=== PATIENT | male | born 1970 | race Caucasian/White ===

== ENCOUNTER 2016-09-08 15:52 | Emergency (ER) | payer OTHER ==
[~2016-09-08 15:52] MED LIST: ALBUTEROL HFA60 DOSE IN; ALBUTEROL2.5 MG/3 M IN; HYCET1 ML PO
--- NOTE | 2016-09-08 18:12 | DIAGNOSTIC IMAGING REPORT ---
PROCEDURE: US SCROTUM/TESTICLE INDICATION: Scrotal swelling. History of chronic epididymitis. TECHNIQUE: Cornelius scale and color Doppler sonographic images through the scrotum were obtained. COMPARISON: Comparison is made to scrotal ultrasound 10/06/2015. FINDINGS: RIGHT TESTICLE: Right testicle is of normal size (3.1 x 2.3 cm) minimal increased vascularity. There is mild enlargement and heterogeneous appearance of the right epididymis (1.2 x 0.9 cm) with increased vascularity. LEFT TESTICLE: Left testicle is of normal size (3.8 x 2.3 cm) with minimal increased vascularity. There is mild enlargement and heterogeneous appearance of the left epididymis (1.5 x 1.0 cm) with mild increased vascularity. Scans were obtained of the right inguinal region (previously drained seroma) there is no evidence of significant fluid collection. IMPRESSION: 1. Normal testicles with mild increased vascularity. 2. Mild enlargement and heterogeneous appearance of bilateral epididymi with increased vascularity signal consistent with chronic epididymitis. 3. Findings discussed with Dr. James Jin.
--- NOTE | 2016-09-08 18:57 | ED CLINICAL REPORT ---
Clinical Report - Physicians/Mid Levels [facility] [address] [place] [address] 09/08/2016 15:53 Patient: JORDAN RICHARDSON Time Seen: 16:24. Arrived- By private vehicle. Historian- patient. HISTORY OF PRESENT ILLNESS Chief Complaint: RIGHT TESTICULAR PAIN. This started about 1 week ago and is still present. The problem is described as severe. It was gradual in onset and has been constant and waxing/waning. No penile discharge, discomfort with urination, urinary frequency, genital lesion or urgency of urination. He has had severe testicular pain, involving the right testicle with swelling. (the patient has a history of what initially was thought to be an inguinal hernia but later turned out to be a cyst on the right. He underwent surgery for this about a year and a half ago. Over the past week he has noticed increased swelling there and progressively more painful.). Similar symptoms previously: REVIEW OF SYSTEMS No chills, fever, sweats, calf pain or chest pain. No cough, difficulty breathing, pedal edema, palpitations or abdominal pain. No constipation, diarrhea, nausea or urinary problems. All systems otherwise negative, except as recorded above. PAST HISTORY Problems: Abdominal Pain. Hernia. Diverticulitis. Herpes Genitalis. STD - Sexually Transmitted Disease. Conjunctivitis. Hypertension. Epididymitis. Asthma. Anxiety Reaction. Additional Surgeries: Abd Surgery. Tonsillectomy. Medications: Albuterol Sulfate HFA Inhalation. Allergies: PCN. SOCIAL HISTORY Smoker- current status unknown (he chews tobacco). Occasional alcohol use. History of drug use: marijuana. ADDITIONAL NOTES The nursing notes have been reviewed. PHYSICAL EXAM Vital Signs: 09/08/2016 16:17 BP: 144/92. HR: 113. RR: 16. O2 saturation: 100%. Temp: 98.3 F. Pain level now: 8/10. Have been reviewed. Appearance: Alert. No acute distress. ENT: Pharynx normal. Neck: Neck supple. CVS: Heart sounds normal. Respiratory: No respiratory distress. Breath sounds normal. Abdomen: Soft and nontender. Bowel sounds normal. No organomegaly. No mass. Back: Normal external inspection. No CVA tenderness. : Medium sized right-sided scrotal mass. Skin: Skin warm and dry. Normal skin color. No rash. Normal skin turgor. Extremities: Extremities exhibit normal ROM. No calf tenderness. No lower extremity edema. LABS, X-RAYS, AND EKG Scrotal Sonogram: IMPRESSION: 1. Normal testicles with mild increased vascularity. 2. Mild enlargement and heterogeneous appearance of bilateral epididymi with increased vascularity signal consistent with chronic epididymitis. The study was interpreted contemporaneously by me and discussed with the radiologist. Laboratory Tests: UA-Culture if indicated: (MICHAELA: 09/08/2016 18:05) ( [facility]33) Final results Test Result Flag Units (Reference) URINE COLOR YELLOW URINE APPEARANCE CLEAR URINE GLUCOSE NEGATIVE (NEGATIVE) URINE BILIRUBIN NEGATIVE (NEGATIVE) URINE KETONE NEGATIVE (NEGATIVE) URINE SPECIFIC GRAVITY >= 1.030 (1.010-1.030) URINE PH 6.5 (5.0-8.0) URINE PROTEIN NEGATIVE (NEGATIVE) URINE UROBILINOGEN 0.2 EU/dL (0.2-1.0) URINE NITRITE NEGATIVE (NEGATIVE) URINE BLOOD NEGATIVE (NEGATIVE) URINE LEUK ESTERASE NEGATIVE (NEGATIVE) URINE RBC RARE rbc/hpf (0-1) URINE WBC 5-10 wbc/hpf (0-1) URINE EPITHELIAL CELLS RARE EPI/hpf (0-5) URINE BACTERIA MODERATE (2+ TO 3+) (NONE SEEN) URINE COMMENT CULTURE INDICATED URINE CULTURES ARE SET-UP BASED ON THE FOLLOWING CRITERIA:POSITIVE NITRITEPOSITIVE LEUKOCYTE ESTERASEGREATER THAN 10 WHITE BLOOD CELLSMODERATE (2+) OR GREATER BACTERIA CBC w Diff: (MICHAELA: 09/08/2016 16:38) ( Mscvd 09/08/2016 16:50) Final results Test Result Flag Units (Reference) WHITE BLOOD COUNT 12.0 H K/uL (4.5-11.5) RED BLOOD COUNT 4.78 M/uL (4.50-5.90) HEMOGLOBIN 14.1 gm/dL (13.5-17.5) HEMATOCRIT 43.8 % (41.0-53.0) MEAN CELL VOLUME 92 fL (80-100) MEAN CORPUSCULAR HGB 30 pg (26-34) MEAN CORPUSCULAR HGB CONC 32 g/dL (31-37) RED CELL DISTRIBUTION WIDTH 15.1 H % (11.6-14.8) PLATELET COUNT 671 H K/uL (150-400) NEUTROPHIL % 76.0 H % (50-75) LYMPH % 16.1 L % (25-40) MONO % 7.1 % (3-14) EOSINOPHIL % 0.5 % (0-4) BASOPHIL % 0.3 % (0-2) Urine Drug Screen: (MICHAELA: 09/08/2016 18:05) ( MsgRcvd 09/08/2016 18:29) Final results Test Result Flag Units (Reference) AMPHETAMINE/METHAMPHETAMINE POSITIVE H (NEGATIVE) BARBITURATE NEGATIVE (NEGATIVE) BENZODIAZEPINE NEGATIVE (NEGATIVE) CANNABINOID NEGATIVE (NEGATIVE) COCAINE NEGATIVE (NEGATIVE) ECSTASY POSITIVE H (NEGATIVE) METHADONE NEGATIVE (NEGATIVE) OPIATE POSITIVE H (NEGATIVE) The urine drug screen is a qualitative screening test fordrug overdose and abuse. All screen results should beconsidered as presumptive.Drugs screened for are as follows:BenzodiazepinesCocaineAmphetamines/MetamphetaminesTHC (Tetrahydrocannabinol)OpiatesBarbituratesEcstasyMethadonePositive results are unconfirmed. For confirmation, notifythe lab for the specimen to be sent to the reference lab.All confirmations must be performed by a differentmethodology.The ingestion of natural herbal and plant productscontaining Ephedra/Ephedra metabolites can produce in urineone or more substances capable of cross reacting withamphetamine/methamphetamine immunoassays. These testsprovide a preliminary result only. A more specificalternative chemical method must be used to obtain aconfirmed analytical result. CMP: (MICHAELA: 09/08/2016 16:38) ( [facility] [place]/08[facility] 17:10) Final results Test Result Flag Units (Reference) GLUCOSE 92 mg/dL (70-110) BUN 19 H mg/dL (7-18) CREATININE 1.2 mg/dL (0.6-1.3) Estimated GFR >60 mL/min Estimated GFR- >60 mL/min Note: Persistent reduction over 3 months in eGFR<60 mL/min/1.73 m2 defines CKD. Patients with eGFR values>=60 mL/min/1.73 m2 may also have CKD if evidence ofpersistent proteinuria. Additional information may be foundat www.kidney.org. SODIUM 137 mmol/L (136-145) POTASSIUM 4.3 mmol/L (3.5-5.1) CHLORIDE 100 mmol/L (98-107) CARBON DIOXIDE 31 mmol/L (21-32) CALCIUM 8.9 mg/dL (8.5-10.1) TOTAL PROTEIN 8.0 g/dL (6.4-8.2) ALBUMIN 3.0 L g/dL (3.3-5.0) BILIRUBIN, TOTAL 0.2 mg/dL (0.0-1.0) ALKALINE PHOSPHATASE 97 U/L (46-116) AST (SGOT) 24 U/L (15-37) ALT (SGPT) 44 U/L (12-78) LIPASE 133 U/L (73-393) AMYLASE 50 U/L (25-115) Culture, Urine: (MICHAELA: 09/08/2016 18:05) ( MsgRcvd 09/09/2016 09:22) IP Test Result Flag Units (Reference) CULTURE, URINE DATE: 09/09/16 NO GROWTH AT:: NO GROWTH AT 1 DAY PRELIM REPORT: PRELIMINARY REPORT #1 . Lab Tests Pending: Laboratory tests pending. (GC and chlamydia). PROGRESS AND PROCEDURES Course of Care: Patient is stable. Patient/family counseled. Old medical records reviewed. (including his operative report of February 23, 2015). Disposition: Discharged. Condition: stable. CLINICAL IMPRESSION Right and left epididymitis Substance abuse- methamphetamines. INSTRUCTIONS No driving or operating machinery while taking medication. Sedative medication was given during your visit. Drink plenty of fluids. Warnings: Further evaluation is necessary. GENERAL WARNINGS: Return or contact your physician immediately if your condition worsens or changes unexpectedly, if not improving as expected, or if other problems arise. Prescription Medications: Levaquin 500 mg: take 1 tab orally every day for 10 days. No refills. Substitution is permissible. Ultram 50 mg: take 1-2 orally every 6 hours as needed for pain. Dispense fifteen (15). No refills. Substitution is permissible. Follow-up: Follow up with a urologist- as recommended by your primary care physician. Call for an appointment. Understanding of the discharge instructions verbalized by patient. Follow-up with: [facility], , , [address], [facility], [id number] Follow up Sunday in three days. Call for an appointment. (Electronically signed by James Jin MD 09/09/2016 12:20)
--- NOTE | 2016-09-08 18:57 | ED ORDER SUMMARY ---
..... Patient: JORDAN RICHARDSON OrderSheet [facility] VisitID: [id number] [address] [place] [address] 45y, M Registration Date/Time: 09/08/2016 ORDER SHEET Weight: 90.7 kg (stated) Allergies: PCN GENERAL ORDERS: CBC w Diff Urgent (16:25 09/08/2016 Mónica DOOLEY) (Ack 16:40 LTapper) (16:42 HOShaughnessy R.N.) CMP Urgent (16:09/08/2016 Mónica DOOLEY) (Ack 16:40 LTapper) (16:42 HOShaughnessy R.N.) UA-Culture if indicated Urgent (16:09/08/2016 Mónica DOOLEY) (Ack 16:40 LTapper) (18:20 HOShaughnessy R.N.) Amylase Urgent (16:09/08/2016 Mónica DOOLEY) (Ack 16:40 LTapper) (16:42 HOShaughnessy R.N.) Lipase Urgent (16:09/08/2016 Mónica DOOLEY) (Ack 16:40 LTapper) (16:42 HOShaughnessy R.N.) US Scrotum/Testicular Urgent (16:52 09/08/2016 Mónica DOOLEY) (16:58 HOShaughnessy R.N.) NPO (16:52 09/08/2016 Mónica DOOLEY) (16:58 HOShaughnessy R.N.) Urine Drug Screen Urgent (17:22 09/08/2016 Mónica DOOLEY) (Ack 17:37 LTapper) (18:20 HOShaughnessy R.N.) GC/Chlamydia (Penis) (penis) Urgent (18:43 09/08/2016 Mónica DOOLEY) (19:02 HOShaughnessy R.N.) MEDICATION ORDERS: Levaquin PO 500 mg (NOW) (18:43 09/08/2016 Mónica DOOLEY) (19:02 HOShaughnessy R.N.) IV FLUIDS: IV Saline Lock (16:25 09/08/2016 Mónica DOOLEY) (16:42 HOShaughnessy R.N.) IV NS : initial bolus 500 mL (1000 mL/hr), then 125 mL/hr for 4h (NOW); Urgent (16:52 09/08/2016 Mónica DOOLEY) (16:58 John RuggieroNBetty) Dilaudid IV 0.5 mg (HIGH ALERT MEDICATION, NOW) (16:52 09/08/2016 Mónica DOOLEY) (16:58 John RuggieroN.) Zofran IV 4 mg (NOW) (16:52 09/08/2016 Mónica DOOLEY) (16:58 John RuggieroN.) Ceftriaxone IV 250 mg/50mL (NOW) (18:43 09/08/2016 Mónica DOOLEY) (19:02 John Dunn) ORDER SHEET NOTES: [Electronically signed by Fadi Kunz R.N. (19:09/08/2016)] [Electronically signed by James Jin MD (12:20 09/09/2016)] [Electronically locked/signed by Fadi Kunz R.N. (19:21 09/08/2016)]
--- NOTE | 2016-09-08 18:57 | ED ORDER SUMMARY ---
..... Patient: JORDAN RICHARDSON OrderSheet [facility] VisitID: [id number] [address] [place] [address] 45y, M Registration Date/Time: 09/08/2016 ORDER SHEET Weight: 90.7 kg (stated) Allergies: PCN GENERAL ORDERS: CBC w Diff Urgent (16:25 09/08/2016 Mónica DOOLEY) (Ack 16:40 LTapper) (16:42 HOShaughnessy R.N.) CMP Urgent (16:09/08/2016 Mónica DOOLEY) (Ack 16:40 LTapper) (16:42 HOShaughnessy R.N.) UA-Culture if indicated Urgent (16:09/08/2016 Mónica DOOLEY) (Ack 16:40 LTapper) (18:20 HOShaughnessy R.N.) Amylase Urgent (16:09/08/2016 Mónica DOOLEY) (Ack 16:40 LTapper) (16:42 HOShaughnessy R.N.) Lipase Urgent (16:09/08/2016 Mónica DOOLEY) (Ack 16:40 LTapper) (16:42 HOShaughnessy R.N.) US Scrotum/Testicular Urgent (16:52 09/08/2016 Mónica DOOLEY) (16:58 HOShaughnessy R.N.) NPO (16:52 09/08/2016 Mónica DOOLEY) (16:58 HOShaughnessy R.N.) Urine Drug Screen Urgent (17:22 09/08/2016 Mónica DOOLEY) (Ack 17:37 LTapper) (18:20 HOShaughnessy R.N.) GC/Chlamydia (Penis) (penis) Urgent (18:43 09/08/2016 Mónica DOOLEY) (19:02 HOShaughnessy R.N.) MEDICATION ORDERS: Levaquin PO 500 mg (NOW) (18:43 09/08/2016 Mónica DOOLEY) (19:02 HOShaughnessy R.N.) IV FLUIDS: IV Saline Lock (16:25 09/08/2016 Mónica DOOLEY) (16:42 HOShaughnessy R.N.) IV NS : initial bolus 500 mL (1000 mL/hr), then 125 mL/hr for 4h (NOW); Urgent (16:52 09/08/2016 Mónica DOOLEY) (16:58 John RuggieroNBetty) Dilaudid IV 0.5 mg (HIGH ALERT MEDICATION, NOW) (16:52 09/08/2016 Mónica DOOLEY) (16:58 John RuggieroN.) Zofran IV 4 mg (NOW) (16:52 09/08/2016 Mónica DOOLEY) (16:58 John RuggieroN.) Ceftriaxone IV 250 mg/50mL (NOW) (18:43 09/08/2016 Mónica DOOLEY) (19:02 John Dunn) ORDER SHEET NOTES: [Electronically signed by Fadi Kunz R.N. (19:09/08/2016)] [Electronically signed by James Jin MD (12:20 09/09/2016)] [Electronically locked/signed by Fadi Kunz R.N. (19:21 09/08/2016)]
--- NOTE | 2016-09-08 18:57 | ED CLINICAL REPORT ---
Clinical Report - Physicians/Mid Levels [facility] [address] [place] [address] 09/08/2016 15:53 Patient: JORDAN RICHARDSON Time Seen: 16:24. Arrived- By private vehicle. Historian- patient. HISTORY OF PRESENT ILLNESS Chief Complaint: RIGHT TESTICULAR PAIN. This started about 1 week ago and is still present. The problem is described as severe. It was gradual in onset and has been constant and waxing/waning. No penile discharge, discomfort with urination, urinary frequency, genital lesion or urgency of urination. He has had severe testicular pain, involving the right testicle with swelling. (the patient has a history of what initially was thought to be an inguinal hernia but later turned out to be a cyst on the right. He underwent surgery for this about a year and a half ago. Over the past week he has noticed increased swelling there and progressively more painful.). Similar symptoms previously: REVIEW OF SYSTEMS No chills, fever, sweats, calf pain or chest pain. No cough, difficulty breathing, pedal edema, palpitations or abdominal pain. No constipation, diarrhea, nausea or urinary problems. All systems otherwise negative, except as recorded above. PAST HISTORY Problems: Abdominal Pain. Hernia. Diverticulitis. Herpes Genitalis. STD - Sexually Transmitted Disease. Conjunctivitis. Hypertension. Epididymitis. Asthma. Anxiety Reaction. Additional Surgeries: Abd Surgery. Tonsillectomy. Medications: Albuterol Sulfate HFA Inhalation. Allergies: PCN. SOCIAL HISTORY Smoker- current status unknown (he chews tobacco). Occasional alcohol use. History of drug use: marijuana. ADDITIONAL NOTES The nursing notes have been reviewed. PHYSICAL EXAM Vital Signs: 09/08/2016 16:17 BP: 144/92. HR: 113. RR: 16. O2 saturation: 100%. Temp: 98.3 F. Pain level now: 8/10. Have been reviewed. Appearance: Alert. No acute distress. ENT: Pharynx normal. Neck: Neck supple. CVS: Heart sounds normal. Respiratory: No respiratory distress. Breath sounds normal. Abdomen: Soft and nontender. Bowel sounds normal. No organomegaly. No mass. Back: Normal external inspection. No CVA tenderness. : Medium sized right-sided scrotal mass. Skin: Skin warm and dry. Normal skin color. No rash. Normal skin turgor. Extremities: Extremities exhibit normal ROM. No calf tenderness. No lower extremity edema. LABS, X-RAYS, AND EKG Scrotal Sonogram: IMPRESSION: 1. Normal testicles with mild increased vascularity. 2. Mild enlargement and heterogeneous appearance of bilateral epididymi with increased vascularity signal consistent with chronic epididymitis. The study was interpreted contemporaneously by me and discussed with the radiologist. Laboratory Tests: UA-Culture if indicated: (MICHAELA: 09/08/2016 18:05) ( [facility] Final results Test Result Flag Units (Reference) URINE COLOR YELLOW URINE APPEARANCE CLEAR URINE GLUCOSE NEGATIVE (NEGATIVE) URINE BILIRUBIN NEGATIVE (NEGATIVE) URINE KETONE NEGATIVE (NEGATIVE) URINE SPECIFIC GRAVITY >= 1.030 (1.010-1.030) URINE PH 6.5 (5.0-8.0) URINE PROTEIN NEGATIVE (NEGATIVE) URINE UROBILINOGEN 0.2 EU/dL (0.2-1.0) URINE NITRITE NEGATIVE (NEGATIVE) URINE BLOOD NEGATIVE (NEGATIVE) URINE LEUK ESTERASE NEGATIVE (NEGATIVE) URINE RBC RARE rbc/hpf (0-1) URINE WBC 5-10 wbc/hpf (0-1) URINE EPITHELIAL CELLS RARE EPI/hpf (0-5) URINE BACTERIA MODERATE (2+ TO 3+) (NONE SEEN) URINE COMMENT CULTURE INDICATED URINE CULTURES ARE SET-UP BASED ON THE FOLLOWING CRITERIA:POSITIVE NITRITEPOSITIVE LEUKOCYTE ESTERASEGREATER THAN 10 WHITE BLOOD CELLSMODERATE (2+) OR GREATER BACTERIA CBC w Diff: (MICHAELA: 09/08/2016 16:38) ( Mscvd 09/08/2016 16:50) Final results Test Result Flag Units (Reference) WHITE BLOOD COUNT 12.0 H K/uL (4.5-11.5) RED BLOOD COUNT 4.78 M/uL (4.50-5.90) HEMOGLOBIN 14.1 gm/dL (13.5-17.5) HEMATOCRIT 43.8 % (41.0-53.0) MEAN CELL VOLUME 92 fL (80-100) MEAN CORPUSCULAR HGB 30 pg (26-34) MEAN CORPUSCULAR HGB CONC 32 g/dL (31-37) RED CELL DISTRIBUTION WIDTH 15.1 H % (11.6-14.8) PLATELET COUNT 671 H K/uL (150-400) NEUTROPHIL % 76.0 H % (50-75) LYMPH % 16.1 L % (25-40) MONO % 7.1 % (3-14) EOSINOPHIL % 0.5 % (0-4) BASOPHIL % 0.3 % (0-2) Urine Drug Screen: (MICHAELA: 09/08/2016 18:05) ( MsgRcvd 09/08/2016 18:29) Final results Test Result Flag Units (Reference) AMPHETAMINE/METHAMPHETAMINE POSITIVE H (NEGATIVE) BARBITURATE NEGATIVE (NEGATIVE) BENZODIAZEPINE NEGATIVE (NEGATIVE) CANNABINOID NEGATIVE (NEGATIVE) COCAINE NEGATIVE (NEGATIVE) ECSTASY POSITIVE H (NEGATIVE) METHADONE NEGATIVE (NEGATIVE) OPIATE POSITIVE H (NEGATIVE) The urine drug screen is a qualitative screening test fordrug overdose and abuse. All screen results should beconsidered as presumptive.Drugs screened for are as follows:BenzodiazepinesCocaineAmphetamines/MetamphetaminesTHC (Tetrahydrocannabinol)OpiatesBarbituratesEcstasyMethadonePositive results are unconfirmed. For confirmation, notifythe lab for the specimen to be sent to the reference lab.All confirmations must be performed by a differentmethodology.The ingestion of natural herbal and plant productscontaining Ephedra/Ephedra metabolites can produce in urineone or more substances capable of cross reacting withamphetamine/methamphetamine immunoassays. These testsprovide a preliminary result only. A more specificalternative chemical method must be used to obtain aconfirmed analytical result. CMP: (MICHAELA: 09/08/2016 16:38) ( [facility] [place] 09/08/2016 17:10) Final results Test Result Flag Units (Reference) GLUCOSE 92 mg/dL (70-110) BUN 19 H mg/dL (7-18) CREATININE 1.2 mg/dL (0.6-1.3) Estimated GFR >60 mL/min Estimated GFR- >60 mL/min Note: Persistent reduction over 3 months in eGFR<60 mL/min/1.73 m2 defines CKD. Patients with eGFR values>=60 mL/min/1.73 m2 may also have CKD if evidence ofpersistent proteinuria. Additional information may be foundat www.kidney.org. SODIUM 137 mmol/L (136-145) POTASSIUM 4.3 mmol/L (3.5-5.1) CHLORIDE 100 mmol/L (98-107) CARBON DIOXIDE 31 mmol/L (21-32) CALCIUM 8.9 mg/dL (8.5-10.1) TOTAL PROTEIN 8.0 g/dL (6.4-8.2) ALBUMIN 3.0 L g/dL (3.3-5.0) BILIRUBIN, TOTAL 0.2 mg/dL (0.0-1.0) ALKALINE PHOSPHATASE 97 U/L (46-116) AST (SGOT) 24 U/L (15-37) ALT (SGPT) 44 U/L (12-78) LIPASE 133 U/L (73-393) AMYLASE 50 U/L (25-115) Culture, Urine: (MICHAELA: 09/08/2016 18:05) ( MsgRcvd 09/09/2016 09:22) IP Test Result Flag Units (Reference) CULTURE, URINE DATE: 09/09/16 NO GROWTH AT:: NO GROWTH AT 1 DAY PRELIM REPORT: PRELIMINARY REPORT #1 . Lab Tests Pending: Laboratory tests pending. (GC and chlamydia). PROGRESS AND PROCEDURES Course of Care: Patient is stable. Patient/family counseled. Old medical records reviewed. (including his operative report of February 23, 2015). Disposition: Discharged. Condition: stable. CLINICAL IMPRESSION Right and left epididymitis Substance abuse- methamphetamines. INSTRUCTIONS No driving or operating machinery while taking medication. Sedative medication was given during your visit. Drink plenty of fluids. Warnings: Further evaluation is necessary. GENERAL WARNINGS: Return or contact your physician immediately if your condition worsens or changes unexpectedly, if not improving as expected, or if other problems arise. Prescription Medications: Levaquin 500 mg: take 1 tab orally every day for 10 days. No refills. Substitution is permissible. Ultram 50 mg: take 1-2 orally every 6 hours as needed for pain. Dispense fifteen (15). No refills. Substitution is permissible. Follow-up: Follow up with a urologist- as recommended by your primary care physician. Call for an appointment. Understanding of the discharge instructions verbalized by patient. Follow-up with: [facility], , , [address], [facility], [id number] Follow up Sunday in three days. Call for an appointment. (Electronically signed by James Jin MD 09/09/2016 12:20)
--- NOTE | 2016-09-08 18:57 | ED NURSING NOTES ---
Clinical Report - Nurses [facility] [address] [place] [address] 09/08/2016 15:53 Patient: JORDAN RICHARDSON TRIAGE Triage time 1618 PM. Chief Complaint: ABDOMINAL PAIN. Alert. No acute distress. --16:23 Fadi Kunz R.N. 16:17 09/08/16. BP: 144/92. HR: 113. RR: 16. O2 saturation: 100%. Temp: 98.3 F (oral). Pain level now: 8. Additional comments: Patient reports throbbing pain in his right groin. --16:23 Fadi Kunz R.N. Weight: 90.7 kg stated. Height/Length: 70 inches Per Patient. BMI: 28.7. --16:23 Fadi Kunz R.N. Medications Albuterol Sulfate HFA Inhalation. --16:22 Fadi Kunz R.N. Allergies PCN. --16:22 Fadi Kunz R.N. History Arrived by private vehicle. Historian: patient. Accompanied by spouse. ( Patient presents to the ED with symptoms of severe throbbing right groin pain at the incision site where he had a cyst removed approximately a year and a half ago. Patient states that he has had the GI and respiratory virus lately and has been coughing and vomiting frequently. Patient states that his nausea, vomiting, and cough symptoms have resolved, but states that he pain at the incision site has worsened over the past week. Patient reports throbbing constant pain with some intermittent burning. Patient states that the incision site has swelled as well. Patient states that he has had to have the cyst drained again approximately 1 month after his initial surgery. Patient states that he has has a history of chronic Epididmytis). He has had abdominal pain. SOCIAL HX: Smoker- current status unknown (chew). Occasional alcohol use. History of occasional drug use: marijuana. No infectious disease exposure. FALL RISK ASSESSMENT: Fall risk assessment completed. No fall risk identified. NUTRITIONAL RISK ASSESSMENT: The nutritional risk assessment revealed no deficiencies. FUNCTIONAL ASSESSMENT: Functional assessment: no impairments noted. LEARNING NEEDS ASSESSMENT: The learning needs assessment revealed no barriers. SKIN INTEGRITY ASSESSMENT: Skin integrity risk assessment completed. No skin integrity risk identified. --16:23 Fadi Kuzn R.N. PROBLEMS: Hernia. Diverticulitis. Herpes Genitalis. STD - Sexually Transmitted Disease. Hypertension. Epididymitis. Asthma. --16:22 Fadi Kunz R.N. PHYSICAL ASSESSMENT Ambulatory to room. GENERAL / NEURO / PSYCH: Alert. Oriented X 4. Appears in no acute distress. HEENT: Mucous membranes are pink. RESPIRATORY: Respirations not labored. Breath sounds within normal limits. CVS: Normal sinus rhythm noted. Capillary refill less than 2 seconds. GI / : Abdomen soft. Abdominal tenderness in the right lower quadrant. Guarding present. Bowel sounds within normal limits. Normal genitalia. Stool color normal. Stool heme negative. (POC test reference range: negative). SKIN: Skin is warm and dry. --16:24 Fadi Kunz R.N. NURSING PROGRESS NOTES Head of bed elevated. Call light placed in reach. Side rails up x 1. --16:24 Fadi Kunz R.N. 16:42 09/08/2016 Site #1 started via IV in the right forearm with an 18g angiocath; one attempt. Blood drawn: rainbow set. Labeled in the presence of the patient and sent to the lab. Saline lock flushed with 10 mL saline. --16:42 Fadi Kunz R.N. 16:58 09/08/2016 Started bag #1 1000 mL IV Fluids IV NS (Saline); bolus of 1000 mL wide open via site #1. Allergies verified and confirmed 5 rights. IV patency established. IV site checked: no pain, redness, or swelling. IV flushed thoroughly pre- and post-medication administration. --16:58 Fadi Kunz R.N. 16:58 09/08/2016 Dilaudid (HYDROmorphone HCl PF) IVP 0.5 mg given over 2 minute(s) via site #1. Allergies verified, confirmed 5 rights and sedative warning given to the patient. IV patency established. IV site checked: no pain, redness, or swelling. IV flushed thoroughly pre- and post-medication administration. IVP given by RN. --16:58 Fadi Kunz R.N. 16:58 09/08/2016 Zofran (Ondansetron HCl) IVP 4 mg given over 2 minute(s) via site #1. Allergies verified and confirmed 5 rights. IV patency established. IV site checked: no pain, redness, or swelling. IV flushed thoroughly pre- and post-medication administration. IVP given by RN. --16:58 Fadi Kunz R.N. 17:16 09/08/2016 Dilaudid (HYDROmorphone HCl PF) IVP 0.5 mg given over 2 minute(s) via site #1. Allergies verified, confirmed 5 rights and sedative warning given to the patient. IV patency established. IV site checked: no pain, redness, or swelling. IV flushed thoroughly pre- and post-medication administration. IVP given by RN. --17:16 Fadi Kunz R.N. 17:17 09/08/16. BP: 132/98. HR: 110. RR: 16. O2 saturation: 92%. Pain level now: 04/05. --17:17 Fadi Kunz R.N. The patient is calm and resting quietly. Overall patient status is improved- he states feels better. GI / : Abdomen soft. Bowel sounds within normal limits. SKIN: Skin is warm and dry. Skin color within normal limits. --17:17 Fadi Kunz R.N. ( Ultrasound at the bedside.). --17:30 Fadi Kunz R.N. 18:39 09/08/16. BP: 135/88. HR: 111. RR: 16. O2 saturation: 94%. Pain level now: 12/04. --18:39 Fadi Kunz R.N. 19:02 09/08/2016 Started 250 mg of Ceftriaxone IVPB in bag #1 50 mL; at 100 mL/hr over 30 minute(s) via site #1; Allergies verified and confirmed 5 rights. IV patency established. IV site checked: no pain, redness, or swelling. IV flushed thoroughly pre- and post-medication administration. --19:02 Fadi Kunz R.N. 19:02 09/08/2016 Levaquin (Levofloxacin) PO Tablets 500 mg given. Allergies verified and confirmed 5 rights. --19:02 Fadi Kunz R.N. DISPOSITION / DISCHARGE 19:19 09/08/2016 IV Fluids IV NS Discontinued: bag #1 infused upon discharge. Total amount infused: 1000 mL. IV patency established. IV site checked: no pain, redness, or swelling. IV flushed thoroughly. --19:19 Fadi Kunz R.N. 19:20 09/08/2016 Ceftriaxone IVPB Discontinued: bag #1 completed upon discharge. Total amount infused: 50 mL. IV patency established. IV site checked: no pain, redness, or swelling. IV flushed thoroughly. --19:20 Fadi Kunz R.N. 19:18 09/08/16. BP: 127/92. HR: 95. RR: 16. O2 saturation: 100%. Temp: 98.2 F (oral). Pain level now: 10/06. --19:20 Fadi Kunz R.N. Reviewed medication(s) side effects, precautions, dosing and course information. Prescription(s) given to the procurement coordinator. Reviewed referral to a primary care physician. Patient and spouse verbalized understanding. Written instructions provided in Cambodian. The patient was discharged home and accompanied by spouse. He left the Emergency Department ambulatory and via private vehicle. Spouse driving. --19:20 Fadi Kunz R.N. Departure time: 1920 PM. --19:20 Fadi Kunz R.N. 19:20 09/08/2016 Site #1 removed upon discharge. Catheter intact. Manual pressure and bandage applied. --19:21 Fadi Kunz R.N. Locked/Released at 09/08/2016 19:21 by Fadi Kunz R.N.
--- NOTE | 2016-09-09 12:20 | ED MED RECONCILIATION SUMMARY ---
Patient: JORDAN RICHARDSON Medication Reconciliation Report [facility] VisitID: [id number] [address] [place] [address] 45y, M Registration Date/Time: 09/08/2016 Weight: 90.7 kg Height/Length: 70 in. BMI: 28.7 ALLERGIES: PCN The patient's Home Medications are listed below: THE FOLLOWING MEDICATIONS NEED TO BE RECONCILED: Albuterol Sulfate HFA Inhalation The source(s) of the original Home Medication information: Not obtained. The following Medications were given to the patient in the Emergency Department: IV NS IV Fluids bolus 1000 mL wide open, administered: 09/08/2016 4:58:00 PM Dilaudid [IVP] IVP 0.5 mg, administered: 09/08/2016 4:58:00 PM Zofran [IVP] IVP 4 mg, administered: 09/08/2016 4:58:00 PM Dilaudid [IVP] IVP 0.5 mg, administered: 09/08/2016 5:16:00 PM Ceftriaxone [IVPB] IVPB bolus 0, then 250 mg 100 mL/hr, administered: 09/08/2016 7:02:00 PM Levaquin [PO] PO 500 mg, administered: 09/08/2016 7:02:00 PM The following Medications were prescribed to the patient: Levaquin 500 mg: take 1 tab orally every day for 10 days. No refills. Substitution is permissible. -- James Jin MD Ultram 50 mg: take 1-2 orally every 6 hours as needed for pain. Dispense fifteen (15). No refills. Substitution is permissible. -- James Jin MD
--- NOTE | 2016-09-09 12:20 | ED MED RECONCILIATION SUMMARY ---
Patient: JORDAN RICHARDSON Medication Reconciliation Report [facility] VisitID: [id number] [address] [place] [address] 45y, M Registration Date/Time: 09/08/2016 Weight: 90.7 kg Height/Length: 70 in. BMI: 28.7 ALLERGIES: PCN The patient's Home Medications are listed below: THE FOLLOWING MEDICATIONS NEED TO BE RECONCILED: Albuterol Sulfate HFA Inhalation The source(s) of the original Home Medication information: Not obtained. The following Medications were given to the patient in the Emergency Department: IV NS IV Fluids bolus 1000 mL wide open, administered: 09/08/2016 4:58:00 PM Dilaudid [IVP] IVP 0.5 mg, administered: 09/08/2016 4:58:00 PM Zofran [IVP] IVP 4 mg, administered: 09/08/2016 4:58:00 PM Dilaudid [IVP] IVP 0.5 mg, administered: 09/08/2016 5:16:00 PM Ceftriaxone [IVPB] IVPB bolus 0, then 250 mg 100 mL/hr, administered: 09/08/2016 7:02:00 PM Levaquin [PO] PO 500 mg, administered: 09/08/2016 7:02:00 PM The following Medications were prescribed to the patient: Levaquin 500 mg: take 1 tab orally every day for 10 days. No refills. Substitution is permissible. -- James Jin MD Ultram 50 mg: take 1-2 orally every 6 hours as needed for pain. Dispense fifteen (15). No refills. Substitution is permissible. -- James Jin MD
--- NOTE | 2016-09-09 12:20 | ED DISCHARGE INSTRUCTIONS ---
Patient: JORDAN RICHARDSON General Instructions [facility] VisitID: [id number] [address] [place] [address] 45y, M Registration Date/Time: 09/08/2016 Right and left epididymitis Substance abuse- methamphetamines. INSTRUCTIONS No driving or operating machinery while taking medication. Sedative medication was given during your visit. Drink plenty of fluids. Warnings: Further evaluation is necessary. GENERAL WARNINGS: Return or contact your physician immediately if your condition worsens or changes unexpectedly, if not improving as expected, or if other problems arise. Prescription Medications: Levaquin 500 mg: take 1 tab orally every day for 10 days. No refills. Substitution is permissible. Ultram 50 mg: take 1-2 orally every 6 hours as needed for pain. Dispense fifteen (15). No refills. Substitution is permissible. Follow-up: Follow up with a urologist- as recommended by your primary care physician. Call for an appointment. Understanding of the discharge instructions verbalized by patient. Follow-up with: [facility], , , [address], , [place], [id number] Follow up Sunday in three days. Call for an appointment. ADDITIONAL INFORMATION Epididymitis The pain and swelling in your scrotum are due to an inflammation of the epididymis. This is a small sac next to the testicle that stores sperm. It is usually due to an infection. In sexually active men, it is often due to a sexually transmitted disease (STD) such as Chlamydia or Gonorrhea. In boys and older men who are not sexually active, it is due to bacteria from the bladder or prostate gland (not an STD infection). Symptoms may begin with lower abdominal or low back pain and spreads down into the scrotum. Usually only one side is affected. The testicle and scrotum swell and become very painful. There may be fever and burning when passing urine. Sometimes there is a discharge from the penis. Treatment is with antibiotics, anti-inflammatory and pain medicines. There should be improvement over the first few days of treatment, but it will take several weeks for all the swelling and discomfort to go away. If an STD is suspected as a cause, sexual partners must also be treated. Home Care: 1) Support the scrotum. When lying down, place a rolled towel under the scrotum. When walking, use an athletic supporter or two pairs of Jockey-style underwear. 2) To relieve pain, apply ice packs to the inflamed area (ice cubes in a plastic bag wrapped in a towel). 3) You may use acetaminophen (Tylenol) or ibuprofen (Motrin, Advil) to control pain, unless another medicine was prescribed. [ NOTE : If you have chronic liver or kidney disease or ever had a stomach ulcer or GI bleeding, talk with your doctor before using these medicines.] 4) Rest in bed until the fever, pain and swelling decrease. It may take several weeks for all of the swelling to go away. Avoid coffee, tea, carbonated beverages and alcohol, which could worsen your symptoms. 5) Avoid constipation (which causes straining and therefore increased pain) by eating natural laxatives such as prunes, fresh fruits and whole-grain cereals. If necessary, use a mild jsua-wwl-jqlmarp laxative (Milk of Magnesia) for constipation. Mineral oil can be used to keep the stools soft. 6) Do not have sex until you have finished all treatment and all symptoms have cleared. 7) Take all medicine as directed. Do not miss any doses and do not stop early even if you feel better. Follow Up with your doctor, a urologist, or as advised by our staff to be sure you are responding properly to treatment. If a culture was taken, you may call for the result in 2-3 days. A culture test can ensure that you are on the correct antibiotic. Get Prompt Medical Attention if any of the following occur: -- Fever over 100.4 F (38.0 C) after three days of treatment -- Increasing pain or swelling of the testicle after starting treatment -- Increasing pressure or pain in your bladder -- Unable to pass urine for eight hours Drug Abuse Use and abuse of such drugs as marijuana, amphetamines (speed, crank), cocaine, heroin or prescription pain medicines (Vicodin, codeine), sedatives and sleeping pills (Valium, Klonopin), PCP, mescaline and LSD may lead to addiction or dependence. Once this occurs, you are at greater risk for any of the following: Craving for the drug and unable to stop using the drug even though you think you want to stop (psychological dependence) Drug withdrawal symptoms if you stop taking the drug (physical dependence) Loss of your job or your family Arrest, conviction and care home sentence for possession of an illegal substance or for driving under the influence of such a substance Accidental injuries to yourself or others while you are under the influence of the drug (in a car or at home). HIV infection (much greater risk if you use IV drugs) Other sexually transmitted diseases (herpes, chlamydia, gonorrhea and others) Severe and fatal infection of the heart valves (if you use IV drugs) Stroke, heart attack, hepatitis B or C, kidney failure from overdose Home Care: Admit you have a drug problem. Ask for help from your family and close friends. Seek professional help. This could be in the form of individual psychotherapy or counseling or an outpatient, inpatient, or residential drug treatment program. Join a self-help group for drug abuse. Avoid friends who abuse drugs themselves or tempt you to continue abusing drugs. Eat a balanced diet and begin a regular exercise program. Follow Up with your doctor or as advised by our staff. Contact one of the resources below for help. National Gates on Alcoholism and Drug Dependence www.ncadd.org 876-362-HNDN Narcotics Anonymous www.na.org 267-596-7123 National Alcohol and Substance Abuse Information Center (for referral to treatment programs) www.addictioncarePicPrizes 856-643-0426 Get Prompt Medical Attention if any of the following occur: Agitation, anxiety, unable to sleep Unintended weight loss (more than 10 to 15 pounds over 3 months) Seizure Chest pain Fever of 100.4F (38C) or higher, or as directed by your healthcare provider Excess drowsiness or inability to be awakened Shortness of breath Slow breathing under 8 breaths per minute Cough with colored sputum Redness, swelling or tenderness at an injection site Levofloxacin Oral tablet What is this medicine? LEVOFLOXACIN (kishan domínguez) is a quinolone antibiotic. It is used to treat certain kinds of bacterial infections. It will not work for colds, flu, or other viral infections. How should I use this medicine? Take this medicine by mouth with a full glass of water. Follow the directions on the prescription label. This medicine can be taken with or without food. Take your medicine at regular intervals. Do not take your medicine more often than directed. Do not skip doses or stop your medicine early even if you feel better. Do not stop taking except on your doctor's advice. A special MedGuide will be given to you by the pharmacist with each prescription and refill. Be sure to read this information carefully each time. Talk to your automatic mounter regarding the use of this medicine in children. While this drug may be prescribed for children as young as 6 months for selected conditions, precautions do apply. What side effects may I notice from receiving this medicine? Side effects that you should report to your doctor or health childcare administrator as soon as possible: -allergic reactions like skin rash or hives, swelling of the face, lips, or tongue -changes in vision -confusion, nightmares or hallucinations -difficulty breathing -irregular heartbeat, chest pain -joint, muscle or tendon pain -pain or difficulty passing urine -persistent headache with or without blurred vision -redness, blistering, peeling or loosening of the skin, including inside the mouth -seizures -unusual pain, numbness, tingling, or weakness -vaginal irritation, discharge Side effects that usually do not require medical attention (report to your doctor or health childcare administrator if they continue or are bothersome): -diarrhea -dry mouth -headache -stomach upset, nausea -trouble sleeping What may interact with this medicine? Do not take this medicine with any of the following medications: - arsenic trioxide - chloroquine - droperidol - medicines for irregular heart rhythm like amiodarone, disopyramide, dofetilide, flecainide, quinidine, procainamide, sotalol - some medicines for depression or mental problems like phenothiazines, pimozide, and ziprasidone This medicine may also interact with the following medications: - amoxapine -antacids - cisapride - dairy products - didanosine (ddI) buffered tablets or powder - haloperidol - multivitamins -NSAIDS, medicines for pain and inflammation, like ibuprofen or naproxen - retinoid products like tretinoin or isotretinoin - risperidone - some other antibiotics like clarithromycin or erythromycin - sucralfate - theophylline - warfarin What if I miss a dose? If you miss a dose, take it as soon as you remember. If it is almost time for your next dose, take only that dose. Do not take double or extra doses. Where should I keep my medicine? Keep out of the reach of children. Store at room temperature between 15 and 30 degrees C (59 and 86 degrees F). Keep in a tightly closed container. Throw away any unused medicine after the expiration date. What should I tell my health care provider before I take this medicine? They need to know if you have any of these conditions: cerebral disease irregular heartbeat kidney disease seizure disorder an unusual or allergic reaction to levofloxacin, other antibiotics or medicines, foods, dyes, or preservatives or trying to get breast-feeding What should I watch for while using this medicine? Tell your doctor or health childcare administrator if your symptoms do not improve or if they get worse. Drink several glasses of water a day and cut down on drinks that contain caffeine. You must not get dehydrated while taking this medicine. You may get drowsy or dizzy. Do not drive, use machinery, or do anything that needs mental alertness until you know how this medicine affects you. Do not sit or stand up quickly, especially if you are an older patient. This reduces the risk of dizzy or fainting spells. This medicine can make you more sensitive to the sun. Keep out of the sun. If you cannot avoid being in the sun, wear protective clothing and use a sunscreen. Do not use sun lamps or tanning beds/booths. Contact your doctor if you get a sunburn. If you are a diabetic monitor your blood glucose carefully. If you get an unusual reading stop taking this medicine and call your doctor right away. Do not treat diarrhea with kldw-bid-zymzypv products. Contact your doctor if you have diarrhea that lasts more than 2 days or if the diarrhea is severe and watery. Avoid antacids, calcium, iron, and zinc products for 2 hours before and 2 hours after taking a dose of this medicine. Tramadol Hydrochloride Oral tablet What is this medicine? TRAMADOL (TRA ma dole) is a pain reliever. It is used to treat moderate to severe pain in adults. How should I use this medicine? Take this medicine by mouth with a full glass of water. Follow the directions on the prescription label. If the medicine upsets your stomach, take it with food or milk. Do not take more medicine than you are told to take. Talk to your automatic mounter regarding the use of this medicine in children. Special care may be needed. What side effects may I notice from receiving this medicine? Side effects that you should report to your doctor or health childcare administrator as soon as possible: allergic reactions like skin rash, itching or hives, swelling of the face, lips, or tongue breathing difficulties, wheezing confusion itching light headedness or fainting spells redness, blistering, peeling or loosening of the skin, including inside the mouth seizures Side effects that usually do not require medical attention (report to your doctor or health childcare administrator if they continue or are bothersome): constipation dizziness drowsiness headache nausea, vomiting What may interact with this medicine? Do not take this medicine with any of the following medications: MAOIs like Carbex, Eldepryl, Marplan, Nardil, and Parnate This medicine may also interact with the following medications: alcohol or medicines that contain alcohol antihistamines benzodiazepines bupropion carbamazepine or oxcarbazepine clozapine cyclobenzaprine digoxin furazolidone linezolid medicines for depression, anxiety, or psychotic disturbances medicines for migraine headache like almotriptan, eletriptan, frovatriptan, naratriptan, rizatriptan, sumatriptan, zolmitriptan medicines for pain like pentazocine, buprenorphine, butorphanol, meperidine, nalbuphine, and propoxyphene medicines for sleep muscle relaxants naltrexone phenobarbital phenothiazines like perphenazine, thioridazine, chlorpromazine, mesoridazine, fluphenazine, prochlorperazine, promazine, and trifluoperazine procarbazine warfarin What if I miss a dose? If you miss a dose, take it as soon as you can. If it is almost time for your next dose, take only that dose. Do not take double or extra doses. Where should I keep my medicine? Keep out of the reach of children. Store at room temperature between 15 and 30 degrees C (59 and 86 degrees F). Keep container tightly closed. Throw away any unused medicine after the expiration date. What should I tell my health care provider before I take this medicine? They need to know if you have any of these conditions: brain tumor depression drug abuse or addiction head injury if you frequently drink alcohol containing drinks kidney disease or trouble passing urine liver disease lung disease, asthma, or breathing problems seizures or epilepsy suicidal thoughts, plans, or attempt; a previous suicide attempt by you or a family member an unusual or allergic reaction to tramadol, codeine, other medicines, foods, dyes, or preservatives or trying to get breast-feeding What should I watch for while using this medicine? Tell your doctor or health childcare administrator if your pain does not go away, if it gets worse, or if you have new or a different type of pain. You may develop tolerance to the medicine. Tolerance means that you will need a higher dose of the medicine for pain relief. Tolerance is normal and is expected if you take this medicine for a long time. Do not suddenly stop taking your medicine because you may develop a severe reaction. Your body becomes used to the medicine. This does NOT mean you are addicted. Addiction is a behavior related to getting and using a drug for a non-medical reason. If you have pain, you have a medical reason to take pain medicine. Your doctor will tell you how much medicine to take. If your doctor wants you to stop the medicine, the dose will be slowly lowered over time to avoid any side effects. You may get drowsy or dizzy. Do not drive, use machinery, or do anything that needs mental alertness until you know how this medicine affects you. Do not stand or sit up quickly, especially if you are an older patient. This reduces the risk of dizzy or fainting spells. Alcohol can increase or decrease the effects of this medicine. Avoid alcoholic drinks. You may have constipation. Try to have a bowel movement at least every 2 to 3 days. If you do not have a bowel movement for 3 days, call your doctor or health childcare administrator. Your mouth may get dry. Chewing sugarless gum or sucking hard candy, and drinking plenty of water may help. Contact your doctor if the problem does not go away or is severe. You have been given the following additional information: Epididymitis Drug Abuse Levofloxacin Oral tablet Tramadol Hydrochloride Oral tablet No driving or operating machinery while taking medication. Sedative medication was given during your visit. (Electronically signed by James Jin MD 09/09/2016 12:20)
--- NOTE | 2016-09-09 12:20 | ED MAR SUMMARY ---
..... Medication Administration Record [facility] [address] [place] [place] [address] Patient: JORDAN RICHARDSON Visit ID: [id number] 45y, M Weight: 90.7 kg Height/Length: 70 in BMI: 28.7 ALLERGIES: PCN Start 16:58 09/08/2016 Fadi Kunz R.N., Stop 19:19 09/08/2016 Fadi Kunz R.N. Medication Administered: IV NS (SALINE), Dose: IV Fluids, Bolus: 1000 mL wide open, Dispensed: 1000 mL bag, Site: #1 right forearm. Medication Ordered: IV NS : initial bolus 500 mL (1000 mL/hr), then 125 mL/hr for 4h (NOW); Urgent. Given 16:58 09/08/2016 Fadi Kunz R.N. Medication Administered: DILAUDID [IVP] (HYDROMORPHONE HCL PF), Dose: 0.5 mg IVP over 2 minute(s), Site: #1 right forearm. Medication Ordered: Dilaudid IV 0.5 mg (HIGH ALERT MEDICATION, NOW). Given 16:58 09/08/2016 Fadi Kunz R.N. Medication Administered: ZOFRAN [IVP] (ONDANSETRON HCL), Dose: 4 mg IVP over 2 minute(s), Site: #1 right forearm. Medication Ordered: Zofran IV 4 mg (NOW). Given 17:09/08/2016 Fadi Kunz R.N. Medication Administered: DILAUDID [IVP] (HYDROMORPHONE HCL PF), Dose: 0.5 mg IVP over 2 minute(s), Site: #1 right forearm. Medication Ordered: Dilaudid IV 0.5 mg (HIGH ALERT MEDICATION, NOW). Start 19:02 09/08/2016 Fadi Kunz R.N., Stop 19:20 09/08/2016 Fadi Kunz R.N. Medication Administered: CEFTRIAXONE [IVPB], Dose: 250 mg IVPB over 30 minute(s), Rate: 100 mL/hr, Dispensed: 50 mL bag, Site: #1 right forearm. Medication Ordered: Ceftriaxone IV 250 mg/50mL (NOW). Given 19:02 09/08/2016 Fadi Kunz R.N. Medication Administered: LEVAQUIN [PO] (LEVOFLOXACIN), Dose: 500 mg Tablets PO. Medication Ordered: Levaquin PO 500 mg (NOW).
--- NOTE | 2016-09-09 12:20 | ED DISCHARGE INSTRUCTIONS ---
Patient: JORDAN RICHARDSON General Instructions [facility] VisitID: [id number] [address] [place] [address] 45y, M Registration Date/Time: 09/08/2016 Right and left epididymitis Substance abuse- methamphetamines. INSTRUCTIONS No driving or operating machinery while taking medication. Sedative medication was given during your visit. Drink plenty of fluids. Warnings: Further evaluation is necessary. GENERAL WARNINGS: Return or contact your physician immediately if your condition worsens or changes unexpectedly, if not improving as expected, or if other problems arise. Prescription Medications: Levaquin 500 mg: take 1 tab orally every day for 10 days. No refills. Substitution is permissible. Ultram 50 mg: take 1-2 orally every 6 hours as needed for pain. Dispense fifteen (15). No refills. Substitution is permissible. Follow-up: Follow up with a urologist- as recommended by your primary care physician. Call for an appointment. Understanding of the discharge instructions verbalized by patient. Follow-up with: [facility], , , [address], , [place], [id number] Follow up Sunday in three days. Call for an appointment. ADDITIONAL INFORMATION Epididymitis The pain and swelling in your scrotum are due to an inflammation of the epididymis. This is a small sac next to the testicle that stores sperm. It is usually due to an infection. In sexually active men, it is often due to a sexually transmitted disease (STD) such as Chlamydia or Gonorrhea. In boys and older men who are not sexually active, it is due to bacteria from the bladder or prostate gland (not an STD infection). Symptoms may begin with lower abdominal or low back pain and spreads down into the scrotum. Usually only one side is affected. The testicle and scrotum swell and become very painful. There may be fever and burning when passing urine. Sometimes there is a discharge from the penis. Treatment is with antibiotics, anti-inflammatory and pain medicines. There should be improvement over the first few days of treatment, but it will take several weeks for all the swelling and discomfort to go away. If an STD is suspected as a cause, sexual partners must also be treated. Home Care: 1) Support the scrotum. When lying down, place a rolled towel under the scrotum. When walking, use an athletic supporter or two pairs of Jockey-style underwear. 2) To relieve pain, apply ice packs to the inflamed area (ice cubes in a plastic bag wrapped in a towel). 3) You may use acetaminophen (Tylenol) or ibuprofen (Motrin, Advil) to control pain, unless another medicine was prescribed. [ NOTE : If you have chronic liver or kidney disease or ever had a stomach ulcer or GI bleeding, talk with your doctor before using these medicines.] 4) Rest in bed until the fever, pain and swelling decrease. It may take several weeks for all of the swelling to go away. Avoid coffee, tea, carbonated beverages and alcohol, which could worsen your symptoms. 5) Avoid constipation (which causes straining and therefore increased pain) by eating natural laxatives such as prunes, fresh fruits and whole-grain cereals. If necessary, use a mild nukr-vda-uvmjcyn laxative (Milk of Magnesia) for constipation. Mineral oil can be used to keep the stools soft. 6) Do not have sex until you have finished all treatment and all symptoms have cleared. 7) Take all medicine as directed. Do not miss any doses and do not stop early even if you feel better. Follow Up with your doctor, a urologist, or as advised by our staff to be sure you are responding properly to treatment. If a culture was taken, you may call for the result in 2-3 days. A culture test can ensure that you are on the correct antibiotic. Get Prompt Medical Attention if any of the following occur: -- Fever over 100.4 F (38.0 C) after three days of treatment -- Increasing pain or swelling of the testicle after starting treatment -- Increasing pressure or pain in your bladder -- Unable to pass urine for eight hours Drug Abuse Use and abuse of such drugs as marijuana, amphetamines (speed, crank), cocaine, heroin or prescription pain medicines (Vicodin, codeine), sedatives and sleeping pills (Valium, Klonopin), PCP, mescaline and LSD may lead to addiction or dependence. Once this occurs, you are at greater risk for any of the following: Craving for the drug and unable to stop using the drug even though you think you want to stop (psychological dependence) Drug withdrawal symptoms if you stop taking the drug (physical dependence) Loss of your job or your family Arrest, conviction and fpc sentence for possession of an illegal substance or for driving under the influence of such a substance Accidental injuries to yourself or others while you are under the influence of the drug (in a car or at home). HIV infection (much greater risk if you use IV drugs) Other sexually transmitted diseases (herpes, chlamydia, gonorrhea and others) Severe and fatal infection of the heart valves (if you use IV drugs) Stroke, heart attack, hepatitis B or C, kidney failure from overdose Home Care: Admit you have a drug problem. Ask for help from your family and close friends. Seek professional help. This could be in the form of individual psychotherapy or counseling or an outpatient, inpatient, or residential drug treatment program. Join a self-help group for drug abuse. Avoid friends who abuse drugs themselves or tempt you to continue abusing drugs. Eat a balanced diet and begin a regular exercise program. Follow Up with your doctor or as advised by our staff. Contact one of the resources below for help. National [place] on Alcoholism and Drug Dependence www.ncadd.org 153-926-WFWW Narcotics Anonymous www.na.org 208-918-1380 National Alcohol and Substance Abuse Information Center (for referral to treatment programs) www.addictioncareDhir Diamonds 109-344-5016 Get Prompt Medical Attention if any of the following occur: Agitation, anxiety, unable to sleep Unintended weight loss (more than 10 to 15 pounds over 3 months) Seizure Chest pain Fever of 100.4F (38C) or higher, or as directed by your healthcare provider Excess drowsiness or inability to be awakened Shortness of breath Slow breathing under 8 breaths per minute Cough with colored sputum Redness, swelling or tenderness at an injection site Levofloxacin Oral tablet What is this medicine? LEVOFLOXACIN (kishan domínguez) is a quinolone antibiotic. It is used to treat certain kinds of bacterial infections. It will not work for colds, flu, or other viral infections. How should I use this medicine? Take this medicine by mouth with a full glass of water. Follow the directions on the prescription label. This medicine can be taken with or without food. Take your medicine at regular intervals. Do not take your medicine more often than directed. Do not skip doses or stop your medicine early even if you feel better. Do not stop taking except on your doctor's advice. A special MedGuide will be given to you by the pharmacist with each prescription and refill. Be sure to read this information carefully each time. Talk to your group work program director regarding the use of this medicine in children. While this drug may be prescribed for children as young as 6 months for selected conditions, precautions do apply. What side effects may I notice from receiving this medicine? Side effects that you should report to your doctor or health toddler caregiver as soon as possible: -allergic reactions like skin rash or hives, swelling of the face, lips, or tongue -changes in vision -confusion, nightmares or hallucinations -difficulty breathing -irregular heartbeat, chest pain -joint, muscle or tendon pain -pain or difficulty passing urine -persistent headache with or without blurred vision -redness, blistering, peeling or loosening of the skin, including inside the mouth -seizures -unusual pain, numbness, tingling, or weakness -vaginal irritation, discharge Side effects that usually do not require medical attention (report to your doctor or health toddler caregiver if they continue or are bothersome): -diarrhea -dry mouth -headache -stomach upset, nausea -trouble sleeping What may interact with this medicine? Do not take this medicine with any of the following medications: - arsenic trioxide - chloroquine - droperidol - medicines for irregular heart rhythm like amiodarone, disopyramide, dofetilide, flecainide, quinidine, procainamide, sotalol - some medicines for depression or mental problems like phenothiazines, pimozide, and ziprasidone This medicine may also interact with the following medications: - amoxapine -antacids - cisapride - dairy products - didanosine (ddI) buffered tablets or powder - haloperidol - multivitamins -NSAIDS, medicines for pain and inflammation, like ibuprofen or naproxen - retinoid products like tretinoin or isotretinoin - risperidone - some other antibiotics like clarithromycin or erythromycin - sucralfate - theophylline - warfarin What if I miss a dose? If you miss a dose, take it as soon as you remember. If it is almost time for your next dose, take only that dose. Do not take double or extra doses. Where should I keep my medicine? Keep out of the reach of children. Store at room temperature between 15 and 30 degrees C (59 and 86 degrees F). Keep in a tightly closed container. Throw away any unused medicine after the expiration date. What should I tell my health care provider before I take this medicine? They need to know if you have any of these conditions: cerebral disease irregular heartbeat kidney disease seizure disorder an unusual or allergic reaction to levofloxacin, other antibiotics or medicines, foods, dyes, or preservatives or trying to get breast-feeding What should I watch for while using this medicine? Tell your doctor or health toddler caregiver if your symptoms do not improve or if they get worse. Drink several glasses of water a day and cut down on drinks that contain caffeine. You must not get dehydrated while taking this medicine. You may get drowsy or dizzy. Do not drive, use machinery, or do anything that needs mental alertness until you know how this medicine affects you. Do not sit or stand up quickly, especially if you are an older patient. This reduces the risk of dizzy or fainting spells. This medicine can make you more sensitive to the sun. Keep out of the sun. If you cannot avoid being in the sun, wear protective clothing and use a sunscreen. Do not use sun lamps or tanning beds/booths. Contact your doctor if you get a sunburn. If you are a diabetic monitor your blood glucose carefully. If you get an unusual reading stop taking this medicine and call your doctor right away. Do not treat diarrhea with sgfs-cga-eqopews products. Contact your doctor if you have diarrhea that lasts more than 2 days or if the diarrhea is severe and watery. Avoid antacids, calcium, iron, and zinc products for 2 hours before and 2 hours after taking a dose of this medicine. Tramadol Hydrochloride Oral tablet What is this medicine? TRAMADOL (TRA ma dole) is a pain reliever. It is used to treat moderate to severe pain in adults. How should I use this medicine? Take this medicine by mouth with a full glass of water. Follow the directions on the prescription label. If the medicine upsets your stomach, take it with food or milk. Do not take more medicine than you are told to take. Talk to your group work program director regarding the use of this medicine in children. Special care may be needed. What side effects may I notice from receiving this medicine? Side effects that you should report to your doctor or health toddler caregiver as soon as possible: allergic reactions like skin rash, itching or hives, swelling of the face, lips, or tongue breathing difficulties, wheezing confusion itching light headedness or fainting spells redness, blistering, peeling or loosening of the skin, including inside the mouth seizures Side effects that usually do not require medical attention (report to your doctor or health toddler caregiver if they continue or are bothersome): constipation dizziness drowsiness headache nausea, vomiting What may interact with this medicine? Do not take this medicine with any of the following medications: MAOIs like Carbex, Eldepryl, Marplan, Nardil, and Parnate This medicine may also interact with the following medications: alcohol or medicines that contain alcohol antihistamines benzodiazepines bupropion carbamazepine or oxcarbazepine clozapine cyclobenzaprine digoxin furazolidone linezolid medicines for depression, anxiety, or psychotic disturbances medicines for migraine headache like almotriptan, eletriptan, frovatriptan, naratriptan, rizatriptan, sumatriptan, zolmitriptan medicines for pain like pentazocine, buprenorphine, butorphanol, meperidine, nalbuphine, and propoxyphene medicines for sleep muscle relaxants naltrexone phenobarbital phenothiazines like perphenazine, thioridazine, chlorpromazine, mesoridazine, fluphenazine, prochlorperazine, promazine, and trifluoperazine procarbazine warfarin What if I miss a dose? If you miss a dose, take it as soon as you can. If it is almost time for your next dose, take only that dose. Do not take double or extra doses. Where should I keep my medicine? Keep out of the reach of children. Store at room temperature between 15 and 30 degrees C (59 and 86 degrees F). Keep container tightly closed. Throw away any unused medicine after the expiration date. What should I tell my health care provider before I take this medicine? They need to know if you have any of these conditions: brain tumor depression drug abuse or addiction head injury if you frequently drink alcohol containing drinks kidney disease or trouble passing urine liver disease lung disease, asthma, or breathing problems seizures or epilepsy suicidal thoughts, plans, or attempt; a previous suicide attempt by you or a family member an unusual or allergic reaction to tramadol, codeine, other medicines, foods, dyes, or preservatives or trying to get breast-feeding What should I watch for while using this medicine? Tell your doctor or health toddler caregiver if your pain does not go away, if it gets worse, or if you have new or a different type of pain. You may develop tolerance to the medicine. Tolerance means that you will need a higher dose of the medicine for pain relief. Tolerance is normal and is expected if you take this medicine for a long time. Do not suddenly stop taking your medicine because you may develop a severe reaction. Your body becomes used to the medicine. This does NOT mean you are addicted. Addiction is a behavior related to getting and using a drug for a non-medical reason. If you have pain, you have a medical reason to take pain medicine. Your doctor will tell you how much medicine to take. If your doctor wants you to stop the medicine, the dose will be slowly lowered over time to avoid any side effects. You may get drowsy or dizzy. Do not drive, use machinery, or do anything that needs mental alertness until you know how this medicine affects you. Do not stand or sit up quickly, especially if you are an older patient. This reduces the risk of dizzy or fainting spells. Alcohol can increase or decrease the effects of this medicine. Avoid alcoholic drinks. You may have constipation. Try to have a bowel movement at least every 2 to 3 days. If you do not have a bowel movement for 3 days, call your doctor or health toddler caregiver. Your mouth may get dry. Chewing sugarless gum or sucking hard candy, and drinking plenty of water may help. Contact your doctor if the problem does not go away or is severe. You have been given the following additional information: Epididymitis Drug Abuse Levofloxacin Oral tablet Tramadol Hydrochloride Oral tablet No driving or operating machinery while taking medication. Sedative medication was given during your visit. (Electronically signed by James Jin MD 09/09/2016 12:20)
--- NOTE | 2016-09-09 12:20 | ED MAR SUMMARY ---
..... Medication Administration Record [facility] [address] [place] [address] Patient: JORDAN RICHARDSON Visit ID: [id number] 45y, M Weight: 90.7 kg Height/Length: 70 in BMI: 28.7 ALLERGIES: PCN Start 16:58 09/08/2016 Fadi Kunz R.N., Stop 19:19 09/08/2016 Fadi Kunz R.N. Medication Administered: IV NS (SALINE), Dose: IV Fluids, Bolus: 1000 mL wide open, Dispensed: 1000 mL bag, Site: #1 right forearm. Medication Ordered: IV NS : initial bolus 500 mL (1000 mL/hr), then 125 mL/hr for 4h (NOW); Urgent. Given 16:58 09/08/2016 Fadi Kunz R.N. Medication Administered: DILAUDID [IVP] (HYDROMORPHONE HCL PF), Dose: 0.5 mg IVP over 2 minute(s), Site: #1 right forearm. Medication Ordered: Dilaudid IV 0.5 mg (HIGH ALERT MEDICATION, NOW). Given 16:58 09/08/2016 Fadi Kunz R.N. Medication Administered: ZOFRAN [IVP] (ONDANSETRON HCL), Dose: 4 mg IVP over 2 minute(s), Site: #1 right forearm. Medication Ordered: Zofran IV 4 mg (NOW). Given 17:09/08/2016 Fadi Kunz R.N. Medication Administered: DILAUDID [IVP] (HYDROMORPHONE HCL PF), Dose: 0.5 mg IVP over 2 minute(s), Site: #1 right forearm. Medication Ordered: Dilaudid IV 0.5 mg (HIGH ALERT MEDICATION, NOW). Start 19:02 09/08/2016 Fadi Kunz R.N., Stop 19:20 09/08/2016 Fadi Kunz R.N. Medication Administered: CEFTRIAXONE [IVPB], Dose: 250 mg IVPB over 30 minute(s), Rate: 100 mL/hr, Dispensed: 50 mL bag, Site: #1 right forearm. Medication Ordered: Ceftriaxone IV 250 mg/50mL (NOW). Given 19:02 09/08/2016 Fadi Kunz R.N. Medication Administered: LEVAQUIN [PO] (LEVOFLOXACIN), Dose: 500 mg Tablets PO. Medication Ordered: Levaquin PO 500 mg (NOW).
== END 2016-09-08 19:23 | disposition home or self-care (01) ==
LOC: ED SRH 15:52
DX: N45.1 Epididymitis (principal); F15.10 Other stimulant abuse, uncomplicated; F17.220 Nicotine dependence, chewing tobacco, uncomplicated; I10 Essential (primary) hypertension
CPT/HCPCS: 90004; 90100; 90469; 91227; 91228; 92235; 92530; 92760; 92761; 92762; 92763; 92764; 92765; 92766; 92767; 95059

== ENCOUNTER 2016-11-07 12:42 | Emergency (ER) | payer OTHER ==
--- NOTE | 2016-11-07 13:41 | ED ORDER SUMMARY ---
..... Patient: JORDAN RICHARDSON OrderSheet [facility] VisitID: [id number] [address] [place] [address] 45y, M Registration Date/Time: 11/07/2016 ORDER SHEET Weight: 90.7 kg (stated) Allergies: PCN GENERAL ORDERS: MEDICATION ORDERS: Prednisone PO 60 mg (NOW) (13:05 11/07/2016 Travis Steele) (Ack 13:32 Jonh R.NBetty) (13:34 Weston R.NBetty) IV FLUIDS: ORDER SHEET NOTES: [Electronically signed by Denise Poe R.N. (14:02 11/07/2016)] [Electronically signed by Joe Brownlee Dr. (15:54 11/12/2016)] [Electronically locked/signed by Denise Poe R.N. (14:02 11/07/2016)]
--- NOTE | 2016-11-07 13:41 | ED NURSING NOTES ---
Clinical Report - Nurses [facility] [address] [place] [address] 11/07/2016 12:42 Patient: JORDAN RICHARDSON TRIAGE Triage time 12:40. Acuity: LEVEL 3. Chief Complaint: SHORTNESS OF BREATH, "ASTHMA ATTACK" and WHEEZING. 12:52 11/07/16. Alert. No acute distress. --12:52 Erasmo Jauregui R.N. 12:52 11/07/16. BP: 111/82. HR: 147. RR: 28. O2 saturation: 96%. Temp: 98.0 F. Pain level now 0/10. --12:52 Erasmo Jauregui R.N. 12:56 11/07/16. --12:56 Erasmo Jauregui R.N. Weight: 90.7 kg stated. Height/Length: 70 inches Per Patient. BMI: 28.7. --12:49 Erasmo Jauregui R.N. Medications Albuterol Sulfate HFA Inhalation. --12:51 Erasmo Jauregui R.N. Ventolin HFA Inhalation. --12:51 Erasmo Jauregui R.N. Naproxen Oral. --12:52 Erasmo Jauregui R.N. Allergies PCN. --12:52 Erasmo Jauregui R.N. Medication/allergy information source: the patient. --12:52 Erasmo Jauregui R.N. History Arrived by private vehicle. Historian: EMS. Primary physician (no pcp). ( Pt from home, called 911 for asthma exacerbation. States he has a recently history of pneumonia "he thinks" but was not diagnosed, not seen by a provider or prescribed antibx. Refusing IV and respiratory treatment in triage, states he only wanted EMS to fix him and he doesn't need anything further.). This started today. Treatment DINKEY DRIVER: EMS treatment DINKEY DRIVER verbally communicated. BP: 135/80. HR: 144. RR: 22. O2 saturation: unable to obtain sat. End tidal CO2: 30. Upon arrival patient awake. SOCIAL HX: Never smoker. Occasional alcohol use. History of drug use: marijuana. ABUSE ASSESSMENT: No report of abuse. FALL RISK ASSESSMENT: Fall risk assessment completed. No fall risk identified. NUTRITIONAL RISK ASSESSMENT: The nutritional risk assessment revealed no deficiencies. FUNCTIONAL ASSESSMENT: Functional assessment: no impairments noted. LEARNING NEEDS ASSESSMENT: The learning needs assessment revealed no barriers. SKIN INTEGRITY ASSESSMENT: Skin integrity risk assessment completed. No skin integrity risk identified. --12:52 Erasmo Jauregui R.N. Treatment DINKEY DRIVER: ALBUTEROL nebulizer treatment (10 mg). ( atrovent 0.5). --12:56 Erasmo Jauregui R.N. PROBLEMS: Substance Abuse. Abdominal Pain. Hernia. Diverticulitis. Herpes Genitalis. STD - Sexually Transmitted Disease. Conjunctivitis. Hypertension. Epididymitis. Asthma. Anxiety Reaction. --12:52 Erasmo Jauregui R.N. ADDITIONAL SURGERIES: Abd Surgery. Tonsillectomy. --12:52 Erasmo Jauregui R.N. Interventions ID band on patient. To treatment room. --12:52 Erasmo Jauregui R.N. PHYSICAL ASSESSMENT To room via stretcher. GENERAL / NEURO / PSYCH: Alert. Oriented X 4. Appears anxious. RESPIRATORY: Mild respiratory distress. Wheezing present. CVS: Capillary refill less than 2 seconds. GI / : Abdomen soft and nontender. SKIN: Skin is warm and dry. ( refusing IV and refusing RT treatment in triage). --12:55 Erasmo Jauregui R.N. NURSING PROGRESS NOTES The plan of care for this patient has been created. Pulse oximeter and NIBP monitor placed on patient. Head of bed elevated. Call light placed in reach. Bed placed in lowest position. Brakes of bed on. --12:55 Erasmo Jauregui R.N. 13:19 11/07/2016 Prednisone PO Tablets 60 mg given. Allergies verified and confirmed 5 rights. --13:34 Erasmo Jauregui R.N. DISPOSITION / DISCHARGE 13:50. Condition at departure: improved. No learning barriers present. Reviewed medication(s) side effects, precautions, dosing and course information. Prescription(s) given to the patient. Patient and family verbalized understanding. Written instructions provided in [place]an. The patient was discharged home and accompanied by family. He left the Emergency Department ambulatory and via private vehicle. Family member driving. Medication list reviewed and validated. --14:01 Denise Poe R.N. 14:00 11/07/16. BP: 113/85. HR: 134. HR. ED physician notified. RR: 20. O2 saturation: 96% on room air. Temp: deferred. Pain level now: 3/10. 12:47 11/07/16. BP: 111/82. HR: 147. RR: 28. O2 saturation: 96%. Temp: 98.0 F. Pain level now 0/10. --14:01 Denise Poe R.N. Locked/Released at 11/07/2016 14:02 by Denise Poe R.N.
--- NOTE | 2016-11-07 13:41 | ED NURSING NOTES ---
Clinical Report - Nurses [facility] [address] [place] [address] 11/07/2016 12:42 Patient: JORDAN RICHARDSON TRIAGE Triage time 12:40. Acuity: LEVEL 3. Chief Complaint: SHORTNESS OF BREATH, "ASTHMA ATTACK" and WHEEZING. 12:52 11/07/16. Alert. No acute distress. --12:52 Erasmo Jauregui R.N. 12:52 11/07/16. BP: 111/82. HR: 147. RR: 28. O2 saturation: 96%. Temp: 98.0 F. Pain level now 0/10. --12:52 Erasmo Jauregui R.N. 12:56 11/07/16. --12:56 Erasmo Jauregui R.N. Weight: 90.7 kg stated. Height/Length: 70 inches Per Patient. BMI: 28.7. --12:49 Erasmo Jauregui R.N. Medications Albuterol Sulfate HFA Inhalation. --12:51 Erasmo Jauregui R.N. Ventolin HFA Inhalation. --12:51 Erasmo Jauregui R.N. Naproxen Oral. --12:52 Erasmo Jauregui R.N. Allergies PCN. --12:52 Erasmo Jauregui R.N. Medication/allergy information source: the patient. --12:52 Erasmo Jauregui R.N. History Arrived by private vehicle. Historian: EMS. Primary physician (no pcp). ( Pt from home, called 911 for asthma exacerbation. States he has a recently history of pneumonia "he thinks" but was not diagnosed, not seen by a provider or prescribed antibx. Refusing IV and respiratory treatment in triage, states he only wanted EMS to fix him and he doesn't need anything further.). This started today. Treatment SHIRT CLOSER: EMS treatment SHIRT CLOSER verbally communicated. BP: 135/80. HR: 144. RR: 22. O2 saturation: unable to obtain sat. End tidal CO2: 30. Upon arrival patient awake. SOCIAL HX: Never smoker. Occasional alcohol use. History of drug use: marijuana. ABUSE ASSESSMENT: No report of abuse. FALL RISK ASSESSMENT: Fall risk assessment completed. No fall risk identified. NUTRITIONAL RISK ASSESSMENT: The nutritional risk assessment revealed no deficiencies. FUNCTIONAL ASSESSMENT: Functional assessment: no impairments noted. LEARNING NEEDS ASSESSMENT: The learning needs assessment revealed no barriers. SKIN INTEGRITY ASSESSMENT: Skin integrity risk assessment completed. No skin integrity risk identified. --12:52 Erasmo Jauregui R.N. Treatment SHIRT CLOSER: ALBUTEROL nebulizer treatment (10 mg). ( atrovent 0.5). --12:56 Erasmo Jauregui R.N. PROBLEMS: Substance Abuse. Abdominal Pain. Hernia. Diverticulitis. Herpes Genitalis. STD - Sexually Transmitted Disease. Conjunctivitis. Hypertension. Epididymitis. Asthma. Anxiety Reaction. --12:52 Erasmo Jauregui R.N. ADDITIONAL SURGERIES: Abd Surgery. Tonsillectomy. --12:52 Erasmo Jauregui R.N. Interventions ID band on patient. To treatment room. --12:52 Erasmo Jauregui R.N. PHYSICAL ASSESSMENT To room via stretcher. GENERAL / NEURO / PSYCH: Alert. Oriented X 4. Appears anxious. RESPIRATORY: Mild respiratory distress. Wheezing present. CVS: Capillary refill less than 2 seconds. GI / : Abdomen soft and nontender. SKIN: Skin is warm and dry. ( refusing IV and refusing RT treatment in triage). --12:55 Erasmo Jauregui R.N. NURSING PROGRESS NOTES The plan of care for this patient has been created. Pulse oximeter and NIBP monitor placed on patient. Head of bed elevated. Call light placed in reach. Bed placed in lowest position. Brakes of bed on. --12:55 Erasmo Jauregui R.N. 13:19 11/07/2016 Prednisone PO Tablets 60 mg given. Allergies verified and confirmed 5 rights. --13:34 Erasmo Jauregui R.N. DISPOSITION / DISCHARGE 13:50. Condition at departure: improved. No learning barriers present. Reviewed medication(s) side effects, precautions, dosing and course information. Prescription(s) given to the patient. Patient and family verbalized understanding. Written instructions provided in [place]. The patient was discharged home and accompanied by family. He left the Emergency Department ambulatory and via private vehicle. Family member driving. Medication list reviewed and validated. --14:01 Denise Poe R.N. 14:00 11/07/16. BP: 113/85. HR: 134. HR. ED physician notified. RR: 20. O2 saturation: 96% on room air. Temp: deferred. Pain level now: 3/10. 12:47 11/07/16. BP: 111/82. HR: 147. RR: 28. O2 saturation: 96%. Temp: 98.0 F. Pain level now 0/10. --14:01 Denise Poe R.N. Locked/Released at 11/07/2016 14:02 by Denise Poe R.N.
--- NOTE | 2016-11-07 13:41 | ED ORDER SUMMARY ---
..... Patient: JORDAN RICHARDSON OrderSheet [facility] VisitID: [id number] [address] [place] [address] 45y, M Registration Date/Time: 11/07/2016 ORDER SHEET Weight: 90.7 kg (stated) Allergies: PCN GENERAL ORDERS: MEDICATION ORDERS: Prednisone PO 60 mg (NOW) (13:05 11/07/2016 Travis Steele) (Ack 13:32 Jonh R.NBetty) (13:34 Weston R.NBetty) IV FLUIDS: ORDER SHEET NOTES: [Electronically signed by Denise Poe R.N. (14:02 11/07/2016)] [Electronically signed by Joe Brownlee Dr. (15:54 11/12/2016)] [Electronically locked/signed by Denise Poe R.N. (14:02 11/07/2016)]
--- NOTE | 2016-11-07 13:41 | ED CLINICAL REPORT ---
Clinical Report - Physicians/Mid Levels [facility] [address] [place] [address] 11/07/2016 12:42 Patient: JORDAN RICHARDSON Arrived- By ambulance. Historian- patient. HISTORY OF PRESENT ILLNESS Chief Complaint: WHEEZING. This started Past few days and is still present but is improving. It was abrupt in onset and has been constant but is not gone now. The dyspnea is described as moderate. The patient has had a cough. No chest pain or discomfort. Asthma triggers: infections. Takes asthma medications. (patient reports he is feeling better however reports that he would like steroid treatments. Patient states that he does not need any more albuterol treatments. Patient is refusing IV started as well. Patient states that he understands the risks and benefits of not having further workup done on him. reports no leg swelling, hemoptysis, any recent surgery or trauma,). Similar symptoms previously: Many times. Recent medical care: Not recently seen/assessed. REVIEW OF SYSTEMS The patient has had a nasal discharge and skin rash. No fever, chills, calf pain, abdominal pain or pedal edema. All systems otherwise negative, except as recorded above. PAST HISTORY No history of deep venous thrombosis or pulmonary embolism. ADDITIONAL NOTES The nursing notes have been reviewed. PHYSICAL EXAM Vital Signs: 11/07/2016 12:52 BP: 111/82. HR: 147. RR: 28. O2 saturation: 96%. Temp: 98.0 F. Blood pressure normal. Oxygen saturation normal. Appearance: Alert. No acute distress. Eyes: Pupils equal, round and reactive to light. Eyes normal inspection. ENT: Ears normal. Nose normal. Pharynx normal. Uvula midline. Neck: Normal inspection. Neck supple. No JVD. CVS: Normal heart rate and rhythm. Heart sounds normal. Pulses normal. Respiratory: No respiratory distress. No wheezes, stridor, rales or rhonchi. Abdomen: Soft and nontender. No organomegaly. Skin: Skin warm and dry. Normal skin color. No rash. Normal skin turgor. Extremities: Extremities exhibit normal ROM. PROGRESS AND PROCEDURES Course of Care: he patient is a pleasant 45-year-old male with past medical history significant for asthma presenting for evaluation of shortness of breath and wheezing. The patient was that he is received several breathing treatments at home. Patient states he does not want any further breathing treatments. Patient states that he feels that his heart is racing as a result of this and has had similar reactions in the past with having breathing treatments. Patient reports that he is breathing fine at this point in time but awoke would only like steroids. Patient is currently declining any other interventions or workup at this time. Patient is resting in bed and in no acute distress. Other than the elevated heart rate which is likely due to the albuterol, do not feel anything else this occurring at this time requiring further workup or intervention other than what was recommended before and declined by the patient. Discussed the patient's workup here in the emergency department, diagnosis, home care, follow-up, and return precautions. All questions have been answered. The patient expressed understanding of these instructions and was agreeable to them. Do not feel patient needs be admitted to the hospital or require further emergency department workup/evaluation. Patient is not hypoxic. No signs of respiratory distress. Lungs are clear on examination. Disposition: Discharged. Condition: good. CLINICAL IMPRESSION 11/07/2016 12:52 BP: 111/82. HR: 147. RR: 28. O2 saturation: 96%. Temp: 98.0 F. Blood pressure normal. Oxygen saturation normal. Moderate persistent asthma with an acute exacerbation (acute). No status asthmaticus. INSTRUCTIONS Warnings: GENERAL WARNINGS: Return or contact your physician immediately if your condition worsens or changes unexpectedly, if not improving as expected, or if other problems arise. Specifically return if pain, vomiting, bleeding, breathing difficulty or fever. Your Current Medications: CONTINUE TAKING THE FOLLOWING MEDICATIONS: Albuterol Sulfate HFA Inhalation. Naproxen Oral. Ventolin HFA Inhalation. Prescription Medications: Albuterol HFA oral inhaler: inhale 1 puff every 6 hours as needed for wheezing, difficulty breathing or shortness of breath. Dispense one (1) unit. No refill. Albuterol 0.083% Inhalation Solution: inhale 1 unit dose (3 mL) via nebulizer every 6 hours as needed for wheezing, difficulty breathing or shortness of breath. Dispense fifty (50) units. No refills. Prednisone 50 mg: take 1 orally for 5 days. Dispense five (5). No refills. Follow-up: Return to the emergency department as needed. Follow up with your doctor in three days. Reason for referral: recheck today's concerns. Summary of care provided to patient via paper. Screening today revealed the patient's blood pressure to be in the normal range. The patient should follow up with a primary care provider for blood pressure management. Understanding of the discharge instructions verbalized by patient. (Electronically signed by Joe Brownlee Dr. 11/12/2016 15:54)
--- NOTE | 2016-11-12 15:54 | ED MAR SUMMARY ---
..... Medication Administration Record [facility] [address] [place] [address] Patient: JORDAN RICHARDSON Visit ID: [id number] 45y, M Weight: 90.7 kg Height/Length: 70 in BMI: 28.7 ALLERGIES: PCN Given 13:19 11/07/2016 Erasmo Jauregui R.N. Medication Administered: PREDNISONE [PO], Dose: 60 mg Tablets PO. Medication Ordered: Prednisone PO 60 mg (NOW).
--- NOTE | 2016-11-12 15:54 | ED MAR SUMMARY ---
..... Medication Administration Record [facility] [address] [place] [address] Patient: JORDAN RICHARDSON Visit ID: [id number] 45y, M Weight: 90.7 kg Height/Length: 70 in BMI: 28.7 ALLERGIES: PCN Given 13:19 11/07/2016 Erasmo Jauregui R.N. Medication Administered: PREDNISONE [PO], Dose: 60 mg Tablets PO. Medication Ordered: Prednisone PO 60 mg (NOW).
--- NOTE | 2016-11-12 15:54 | ED DISCHARGE INSTRUCTIONS ---
Patient: JORDAN RICHARDSON General Instructions [facility] VisitID: [id number] [place] [address] 45y, M Registration Date/Time: 11/07/2016 11/07/2016 12:52 BP: 111/82. HR: 147. RR: 28. O2 saturation: 96%. Temp: 98.0 F. Blood pressure normal. Oxygen saturation normal. Moderate persistent asthma with an acute exacerbation (acute). No status asthmaticus. INSTRUCTIONS Warnings: GENERAL WARNINGS: Return or contact your physician immediately if your condition worsens or changes unexpectedly, if not improving as expected, or if other problems arise. Specifically return if pain, vomiting, bleeding, breathing difficulty or fever. Your Current Medications: CONTINUE TAKING THE FOLLOWING MEDICATIONS: Albuterol Sulfate HFA Inhalation. Naproxen Oral. Ventolin HFA Inhalation. Prescription Medications: Albuterol HFA oral inhaler: inhale 1 puff every 6 hours as needed for wheezing, difficulty breathing or shortness of breath. Dispense one (1) unit. No refill. Albuterol 0.083% Inhalation Solution: inhale 1 unit dose (3 mL) via nebulizer every 6 hours as needed for wheezing, difficulty breathing or shortness of breath. Dispense fifty (50) units. No refills. Prednisone 50 mg: take 1 orally for 5 days. Dispense five (5). No refills. Follow-up: Return to the emergency department as needed. Follow up with your doctor in three days. Reason for referral: recheck today's concerns. Summary of care provided to patient via paper. Screening today revealed the patient's blood pressure to be in the normal range. The patient should follow up with a primary care provider for blood pressure management. Understanding of the discharge instructions verbalized by patient. ADDITIONAL INFORMATION Asthma [Adult] Asthma is a disease where the small air passages within the lung go into spasm and restrict the flow of air. Inflammation and swelling of the airways cause further restriction. During an acute asthma attack, these factors cause difficulty breathing, wheezing, cough and chest tightness. An asthma attack can be triggered by many things. Common triggers include the common cold, bronchitis, pneumonia, irritants such as smoke or pullutants in the air, emotional upset and heavy exercise. Inmany adults with asthma, allergies todust, mold, pollen and animal dander can cause an asthma attack. Skipping doses of daily asthma medicine can also bring on an asthma attack. Asthma can be controlled with proper medicines and decreased exposure to known allergens. Home Care: Take prescribed medicine exactly at the times advised. If you have a hand-held inhaler or aerosol breathing medicine, do not use it more than once every four hours, unless told to do so. (If you need this medicine more than every four hours, you may need to return to the Emergency Room.) If prescribed an antibiotic or prednisone, take all of the medicine even if you are feeling better after a few days. Do not smoke. Avoid being exposed to the smoke of others. Some persons with asthma have worsening of their symptoms when they take aspirin and non-steroidal medicines like ibuprofen (Motrin, Advil) and naproxen (Aleve, Naprosyn). Talk to your doctor if you think this may apply to you. Acetaminophen (Tylenol)should be safe to use. Follow Up with your doctor, or as advised by our staff. Always bring all of your current medicines with you for your doctor to see. If you do not already have one, talk to your doctor about developing a personalized "Asthma Action Plan." [NOTE: A pneumococcal vaccine and yearly flu shot (every fall) are recommended. Ask your doctor about this.] Get Prompt Medical Attention if any of the following occur: Increased wheezing or shortness of breath Need to use your inhalers more often than usual without relief Fever of 100.4F (38C) or higher, or as directed by your healthcare provider Coughing up lots of dark-colored or bloody sputum (mucus) Chest pain with each breath You do not start to improve within 24 hours Call 911 If Any Of The Following Occur : Trouble walking or talking because of shortness of breath If you use a peak flow meter andyou are still in the red zone (less than 50 percent) 15 minutes after using inhaler medication Lips or fingernails turning otero or blue Albuterol Sulfate Pressurized inhalation, suspension What is this medicine? ALBUTEROL (al BYOO ter ole) is a bronchodilator. It helps open up the airways in your lungs to make it easier to breathe. This medicine is used to treat and to prevent bronchospasm. How should I use this medicine? This medicine is for inhalation through the mouth. Follow the directions on your prescription label. Take your medicine at regular intervals. Do not use more often than directed. Make sure that you are using your inhaler correctly. Ask you doctor or health care provider if you have any questions. Talk to your residential support specialist regarding the use of this medicine in children. Special care may be needed. What side effects may I notice from receiving this medicine? Side effects that you should report to your doctor or health foster care social worker as soon as possible: allergic reactions like skin rash, itching or hives, swelling of the face, lips, or tongue breathing problems chest pain feeling faint or lightheaded, falls high blood pressure irregular heartbeat fever muscle cramps or weakness pain, tingling, numbness in the hands or feet vomiting Side effects that usually do not require medical attention (report to your doctor or health foster care social worker if they continue or are bothersome): cough difficulty sleeping headache nervousness or trembling stomach upset stuffy or runny nose throat irritation unusual taste What may interact with this medicine? anti-infectives like chloroquine and pentamidine caffeine cisapride diuretics medicines for colds medicines for depression or for emotional or psychotic conditions medicines for weight loss including some herbal products methadone some antibiotics like clarithromycin, erythromycin, levofloxacin, and linezolid some heart medicines steroid hormones like dexamethasone, cortisone, hydrocortisone theophylline thyroid hormones What if I miss a dose? If you miss a dose, use it as soon as you can. If it is almost time for your next dose, use only that dose. Do not use double or extra doses. Where should I keep my medicine? Keep out of the reach of children. Store at room temperature between 15 and 30 degrees C (59 and 86 degrees F). The contents are under pressure and may burst when exposed to heat or flame. Do not freeze. This medicine does not work as well if it is too cold. Throw away any unused medicine after the expiration date. Inhalers need to be thrown away after the labeled number of puffs have been used or by the expiration date; whichever comes first. Ventolin HFA should be thrown away 12 months after removing from foil pouch. Check the instructions that come with your medicine. What should I tell my health care provider before I take this medicine? They need to know if you have any of the following conditions: diabetes heart disease or irregular heartbeat high blood pressure pheochromocytoma seizures thyroid disease an unusual or allergic reaction to albuterol, levalbuterol, sulfites, other medicines, foods, dyes, or preservatives or trying to get breast-feeding What should I watch for while using this medicine? Tell your doctor or health foster care social worker if your symptoms do not improve. Do not use extra albuterol. If your asthma or bronchitis gets worse while you are using this medicine, call your doctor right away. If your mouth gets dry try chewing sugarless gum or sucking hard candy. Drink water as directed. Albuterol Sulfate Nebulizer solution What is this medicine? ALBUTEROL (al BYOO ter ole) is a bronchodilator. It helps to open up the airways in your lungs to make it easier to breathe. This medicine is used to treat and to prevent bronchospasm. How should I use this medicine? This medicine is used in a nebulizer. Nebulizers make a liquid into an aerosol that you breathe in through your mouth or your mouth and nose into your lungs. You will be taught how to use your nebulizer. Follow the directions on your prescription label. Take your medicine at regular intervals. Do not use more often than directed. Talk to your residential support specialist regarding the use of this medicine in children. Special care may be needed. What side effects may I notice from receiving this medicine? Side effects that you should report to your doctor or health foster care social worker as soon as possible: allergic reactions like skin rash, itching or hives, swelling of the face, lips, or tongue breathing problems chest pain feeling faint or lightheaded, falls high blood pressure irregular heartbeat fever muscle cramps or weakness pain, tingling, numbness in the hands or feet vomiting Side effects that usually do not require medical attention (report to your doctor or health foster care social worker if they continue or are bothersome): cough difficulty sleeping headache nervousness, trembling stomach upset stuffy or runny nose throat irritation unusual taste What may interact with this medicine? anti-infectives like chloroquine and pentamidine caffeine cisapride diuretics medicines for colds medicines for depression or emotional or psychotic conditions medicines for weight loss including some herbal products methadone some antibiotics like clarithromycin, erythromycin, levofloxacin, and linezolid some heart medicines steroid hormones like dexamethasone, cortisone, hydrocortisone theophylline thyroid hormones What if I miss a dose? If you miss a dose, use it as soon as you can. If it is almost time for your next dose, use only that dose. Do not use double or extra doses. Where should I keep my medicine? Keep out of the reach of children. Store between 2 and 25 degrees C (36 and 77 degrees F). Do not freeze. Protect from light. Throw away any unused medicine after the expiration date. Most products are kept in the foil package until time of use. Some products can be used up to 1 week after they are removed from the foil pouch. Check the instructions that come with your medicine. What should I tell my health care provider before I take this medicine? They need to know if you have any of the following conditions: diabetes heart disease or irregular heartbeat high blood pressure pheochromocytoma seizures thyroid disease an unusual or allergic reaction to albuterol, levalbuterol, sulfites, other medicines, foods, dyes, or preservatives or trying to get breast-feeding What should I watch for while using this medicine? Tell your doctor or health foster care social worker if your symptoms do not improve. Do not use extra albuterol. Call your doctor right away if your asthma or bronchitis gets worse while you are using this medicine. If your mouth gets dry try chewing sugarless gum or sucking hard candy. Drink water as directed. Prednisone Oral tablet What is this medicine? PREDNISONE (PRED ni sone) is a corticosteroid. It is commonly used to treat inflammation of the skin, joints, lungs, and other organs. Common conditions treated include asthma, allergies, and arthritis. It is also used for other conditions, such as blood disorders and diseases of the adrenal glands. How should I use this medicine? Take this medicine by mouth with a glass of water. Follow the directions on the prescription label. Take this medicine with food. If you are taking this medicine once a day, take it in the morning. Do not take more medicine than you are told to take. Do not suddenly stop taking your medicine because you may develop a severe reaction. Your doctor will tell you how much medicine to take. If your doctor wants you to stop the medicine, the dose may be slowly lowered over time to avoid any side effects. Talk to your residential support specialist regarding the use of this medicine in children. Special care may be needed. What side effects may I notice from receiving this medicine? Side effects that you should report to your doctor or health foster care social worker as soon as possible: allergic reactions like skin rash, itching or hives, swelling of the face, lips, or tongue changes in emotions or moods changes in vision depressed mood eye pain fever or chills, cough, sore throat, pain or difficulty passing urine increased thirst swelling of ankles, feet Side effects that usually do not require medical attention (report to your doctor or health foster care social worker if they continue or are bothersome): confusion, excitement, restlessness headache nausea, vomiting skin problems, acne, thin and shiny skin trouble sleeping weight gain What may interact with this medicine? Do not take this medicine with any of the following medications: metyrapone mifepristone This medicine may also interact with the following medications: aminoglutethimide amphotericin B aspirin and aspirin-like medicines barbiturates certain medicines for diabetes, like glipizide or glyburide cholestyramine cholinesterase inhibitors cyclosporine digoxin diuretics ephedrine female hormones, like estrogens and control pills isoniazid ketoconazole NSAIDS, medicines for pain and inflammation, like ibuprofen or naproxen phenytoin rifampin toxoids vaccines warfarin What if I miss a dose? If you miss a dose, take it as soon as you can. If it is almost time for your next dose, talk to your doctor or health foster care social worker. You may need to miss a dose or take an extra dose. Do not take double or extra doses without advice. Where should I keep my medicine? Keep out of the reach of children. Store at room temperature between 15 and 30 degrees C (59 and 86 degrees F). Protect from light. Keep container tightly closed. Throw away any unused medicine after the expiration date. What should I tell my health care provider before I take this medicine? They need to know if you have any of these conditions: Bucky's syndrome diabetes glaucoma heart disease high blood pressure infection (especially a virus infection such as chickenpox, cold sores, or herpes) kidney disease liver disease mental illness myasthenia gravis osteoporosis seizures stomach or intestine problems thyroid disease an unusual or allergic reaction to lactose, prednisone, other medicines, foods, dyes, or preservatives or trying to get breast-feeding What should I watch for while using this medicine? Visit your doctor or health foster care social worker for regular checks on your progress. If you are taking this medicine over a prolonged period, carry an identification card with your name and address, the type and dose of your medicine, and your doctor's name and address. This medicine may increase your risk of getting an infection. Tell your doctor or health foster care social worker if you are around anyone with measles or chickenpox, or if you develop sores or blisters that do not heal properly. If you are going to have surgery, tell your doctor or health foster care social worker that you have taken this medicine within the last twelve months. Ask your doctor or health foster care social worker about your diet. You may need to lower the amount of salt you eat. This medicine may affect blood sugar levels. If you have diabetes, check with your doctor or health foster care social worker before you change your diet or the dose of your diabetic medicine. You have been given the following additional information: Asthma, Acute (Adult) Albuterol Sulfate Pressurized inhalation, suspension Albuterol Sulfate Nebulizer solution Prednisone Oral tablet (Electronically signed by Joe Brownlee Dr. 11/12/2016 15:54)
--- NOTE | 2016-11-12 15:54 | ED MED RECONCILIATION SUMMARY ---
Patient: JORDAN RICHARDSON Medication Reconciliation Report [facility] VisitID: [id number] [place] [address] 45y, M Registration Date/Time: 11/07/2016 Weight: 90.7 kg Height/Length: 70 in. BMI: 28.7 ALLERGIES: PCN The patient's Home Medications are listed below: CONTINUE TAKING THE FOLLOWING MEDICATIONS: Albuterol Sulfate HFA Inhalation Naproxen Oral Ventolin HFA Inhalation The source(s) of the original Home Medication information: patient The following Medications were given to the patient in the Emergency Department: Prednisone [PO] PO 60 mg, administered: 11/07/2016 1:19:00 PM The following Medications were prescribed to the patient: Albuterol HFA oral inhaler: inhale 1 puff every 6 hours as needed for wheezing, difficulty breathing or shortness of breath. Dispense one (1) unit. No refill. -- Joe Brownlee Dr. Albuterol 0.083% Inhalation Solution: inhale 1 unit dose (3 mL) via nebulizer every 6 hours as needed for wheezing, difficulty breathing or shortness of breath. Dispense fifty (50) units. No refills. -- Joe Brownlee Dr. Prednisone 50 mg: take 1 orally for 5 days. Dispense five (5). No refills. -- Joe Brownlee Dr.
--- NOTE | 2016-11-12 15:54 | ED DISCHARGE INSTRUCTIONS ---
Patient: JORDAN RICHARDSON General Instructions [facility] VisitID: [id number] [place] [address] 45y, M Registration Date/Time: 11/07/2016 11/07/2016 12:52 BP: 111/82. HR: 147. RR: 28. O2 saturation: 96%. Temp: 98.0 F. Blood pressure normal. Oxygen saturation normal. Moderate persistent asthma with an acute exacerbation (acute). No status asthmaticus. INSTRUCTIONS Warnings: GENERAL WARNINGS: Return or contact your physician immediately if your condition worsens or changes unexpectedly, if not improving as expected, or if other problems arise. Specifically return if pain, vomiting, bleeding, breathing difficulty or fever. Your Current Medications: CONTINUE TAKING THE FOLLOWING MEDICATIONS: Albuterol Sulfate HFA Inhalation. Naproxen Oral. Ventolin HFA Inhalation. Prescription Medications: Albuterol HFA oral inhaler: inhale 1 puff every 6 hours as needed for wheezing, difficulty breathing or shortness of breath. Dispense one (1) unit. No refill. Albuterol 0.083% Inhalation Solution: inhale 1 unit dose (3 mL) via nebulizer every 6 hours as needed for wheezing, difficulty breathing or shortness of breath. Dispense fifty (50) units. No refills. Prednisone 50 mg: take 1 orally for 5 days. Dispense five (5). No refills. Follow-up: Return to the emergency department as needed. Follow up with your doctor in three days. Reason for referral: recheck today's concerns. Summary of care provided to patient via paper. Screening today revealed the patient's blood pressure to be in the normal range. The patient should follow up with a primary care provider for blood pressure management. Understanding of the discharge instructions verbalized by patient. ADDITIONAL INFORMATION Asthma [Adult] Asthma is a disease where the small air passages within the lung go into spasm and restrict the flow of air. Inflammation and swelling of the airways cause further restriction. During an acute asthma attack, these factors cause difficulty breathing, wheezing, cough and chest tightness. An asthma attack can be triggered by many things. Common triggers include the common cold, bronchitis, pneumonia, irritants such as smoke or pullutants in the air, emotional upset and heavy exercise. Inmany adults with asthma, allergies todust, mold, pollen and animal dander can cause an asthma attack. Skipping doses of daily asthma medicine can also bring on an asthma attack. Asthma can be controlled with proper medicines and decreased exposure to known allergens. Home Care: Take prescribed medicine exactly at the times advised. If you have a hand-held inhaler or aerosol breathing medicine, do not use it more than once every four hours, unless told to do so. (If you need this medicine more than every four hours, you may need to return to the Emergency Room.) If prescribed an antibiotic or prednisone, take all of the medicine even if you are feeling better after a few days. Do not smoke. Avoid being exposed to the smoke of others. Some persons with asthma have worsening of their symptoms when they take aspirin and non-steroidal medicines like ibuprofen (Motrin, Advil) and naproxen (Aleve, Naprosyn). Talk to your doctor if you think this may apply to you. Acetaminophen (Tylenol)should be safe to use. Follow Up with your doctor, or as advised by our staff. Always bring all of your current medicines with you for your doctor to see. If you do not already have one, talk to your doctor about developing a personalized "Asthma Action Plan." [NOTE: A pneumococcal vaccine and yearly flu shot (every fall) are recommended. Ask your doctor about this.] Get Prompt Medical Attention if any of the following occur: Increased wheezing or shortness of breath Need to use your inhalers more often than usual without relief Fever of 100.4F (38C) or higher, or as directed by your healthcare provider Coughing up lots of dark-colored or bloody sputum (mucus) Chest pain with each breath You do not start to improve within 24 hours Call 911 If Any Of The Following Occur : Trouble walking or talking because of shortness of breath If you use a peak flow meter andyou are still in the red zone (less than 50 percent) 15 minutes after using inhaler medication Lips or fingernails turning otero or blue Albuterol Sulfate Pressurized inhalation, suspension What is this medicine? ALBUTEROL (al BYOO ter ole) is a bronchodilator. It helps open up the airways in your lungs to make it easier to breathe. This medicine is used to treat and to prevent bronchospasm. How should I use this medicine? This medicine is for inhalation through the mouth. Follow the directions on your prescription label. Take your medicine at regular intervals. Do not use more often than directed. Make sure that you are using your inhaler correctly. Ask you doctor or health care provider if you have any questions. Talk to your legal entity controller regarding the use of this medicine in children. Special care may be needed. What side effects may I notice from receiving this medicine? Side effects that you should report to your doctor or health wound care nurse as soon as possible: allergic reactions like skin rash, itching or hives, swelling of the face, lips, or tongue breathing problems chest pain feeling faint or lightheaded, falls high blood pressure irregular heartbeat fever muscle cramps or weakness pain, tingling, numbness in the hands or feet vomiting Side effects that usually do not require medical attention (report to your doctor or health wound care nurse if they continue or are bothersome): cough difficulty sleeping headache nervousness or trembling stomach upset stuffy or runny nose throat irritation unusual taste What may interact with this medicine? anti-infectives like chloroquine and pentamidine caffeine cisapride diuretics medicines for colds medicines for depression or for emotional or psychotic conditions medicines for weight loss including some herbal products methadone some antibiotics like clarithromycin, erythromycin, levofloxacin, and linezolid some heart medicines steroid hormones like dexamethasone, cortisone, hydrocortisone theophylline thyroid hormones What if I miss a dose? If you miss a dose, use it as soon as you can. If it is almost time for your next dose, use only that dose. Do not use double or extra doses. Where should I keep my medicine? Keep out of the reach of children. Store at room temperature between 15 and 30 degrees C (59 and 86 degrees F). The contents are under pressure and may burst when exposed to heat or flame. Do not freeze. This medicine does not work as well if it is too cold. Throw away any unused medicine after the expiration date. Inhalers need to be thrown away after the labeled number of puffs have been used or by the expiration date; whichever comes first. Ventolin HFA should be thrown away 12 months after removing from foil pouch. Check the instructions that come with your medicine. What should I tell my health care provider before I take this medicine? They need to know if you have any of the following conditions: diabetes heart disease or irregular heartbeat high blood pressure pheochromocytoma seizures thyroid disease an unusual or allergic reaction to albuterol, levalbuterol, sulfites, other medicines, foods, dyes, or preservatives or trying to get breast-feeding What should I watch for while using this medicine? Tell your doctor or health wound care nurse if your symptoms do not improve. Do not use extra albuterol. If your asthma or bronchitis gets worse while you are using this medicine, call your doctor right away. If your mouth gets dry try chewing sugarless gum or sucking hard candy. Drink water as directed. Albuterol Sulfate Nebulizer solution What is this medicine? ALBUTEROL (al BYOO ter ole) is a bronchodilator. It helps to open up the airways in your lungs to make it easier to breathe. This medicine is used to treat and to prevent bronchospasm. How should I use this medicine? This medicine is used in a nebulizer. Nebulizers make a liquid into an aerosol that you breathe in through your mouth or your mouth and nose into your lungs. You will be taught how to use your nebulizer. Follow the directions on your prescription label. Take your medicine at regular intervals. Do not use more often than directed. Talk to your legal entity controller regarding the use of this medicine in children. Special care may be needed. What side effects may I notice from receiving this medicine? Side effects that you should report to your doctor or health wound care nurse as soon as possible: allergic reactions like skin rash, itching or hives, swelling of the face, lips, or tongue breathing problems chest pain feeling faint or lightheaded, falls high blood pressure irregular heartbeat fever muscle cramps or weakness pain, tingling, numbness in the hands or feet vomiting Side effects that usually do not require medical attention (report to your doctor or health wound care nurse if they continue or are bothersome): cough difficulty sleeping headache nervousness, trembling stomach upset stuffy or runny nose throat irritation unusual taste What may interact with this medicine? anti-infectives like chloroquine and pentamidine caffeine cisapride diuretics medicines for colds medicines for depression or emotional or psychotic conditions medicines for weight loss including some herbal products methadone some antibiotics like clarithromycin, erythromycin, levofloxacin, and linezolid some heart medicines steroid hormones like dexamethasone, cortisone, hydrocortisone theophylline thyroid hormones What if I miss a dose? If you miss a dose, use it as soon as you can. If it is almost time for your next dose, use only that dose. Do not use double or extra doses. Where should I keep my medicine? Keep out of the reach of children. Store between 2 and 25 degrees C (36 and 77 degrees F). Do not freeze. Protect from light. Throw away any unused medicine after the expiration date. Most products are kept in the foil package until time of use. Some products can be used up to 1 week after they are removed from the foil pouch. Check the instructions that come with your medicine. What should I tell my health care provider before I take this medicine? They need to know if you have any of the following conditions: diabetes heart disease or irregular heartbeat high blood pressure pheochromocytoma seizures thyroid disease an unusual or allergic reaction to albuterol, levalbuterol, sulfites, other medicines, foods, dyes, or preservatives or trying to get breast-feeding What should I watch for while using this medicine? Tell your doctor or health wound care nurse if your symptoms do not improve. Do not use extra albuterol. Call your doctor right away if your asthma or bronchitis gets worse while you are using this medicine. If your mouth gets dry try chewing sugarless gum or sucking hard candy. Drink water as directed. Prednisone Oral tablet What is this medicine? PREDNISONE (PRED ni sone) is a corticosteroid. It is commonly used to treat inflammation of the skin, joints, lungs, and other organs. Common conditions treated include asthma, allergies, and arthritis. It is also used for other conditions, such as blood disorders and diseases of the adrenal glands. How should I use this medicine? Take this medicine by mouth with a glass of water. Follow the directions on the prescription label. Take this medicine with food. If you are taking this medicine once a day, take it in the morning. Do not take more medicine than you are told to take. Do not suddenly stop taking your medicine because you may develop a severe reaction. Your doctor will tell you how much medicine to take. If your doctor wants you to stop the medicine, the dose may be slowly lowered over time to avoid any side effects. Talk to your legal entity controller regarding the use of this medicine in children. Special care may be needed. What side effects may I notice from receiving this medicine? Side effects that you should report to your doctor or health wound care nurse as soon as possible: allergic reactions like skin rash, itching or hives, swelling of the face, lips, or tongue changes in emotions or moods changes in vision depressed mood eye pain fever or chills, cough, sore throat, pain or difficulty passing urine increased thirst swelling of ankles, feet Side effects that usually do not require medical attention (report to your doctor or health wound care nurse if they continue or are bothersome): confusion, excitement, restlessness headache nausea, vomiting skin problems, acne, thin and shiny skin trouble sleeping weight gain What may interact with this medicine? Do not take this medicine with any of the following medications: metyrapone mifepristone This medicine may also interact with the following medications: aminoglutethimide amphotericin B aspirin and aspirin-like medicines barbiturates certain medicines for diabetes, like glipizide or glyburide cholestyramine cholinesterase inhibitors cyclosporine digoxin diuretics ephedrine female hormones, like estrogens and control pills isoniazid ketoconazole NSAIDS, medicines for pain and inflammation, like ibuprofen or naproxen phenytoin rifampin toxoids vaccines warfarin What if I miss a dose? If you miss a dose, take it as soon as you can. If it is almost time for your next dose, talk to your doctor or health wound care nurse. You may need to miss a dose or take an extra dose. Do not take double or extra doses without advice. Where should I keep my medicine? Keep out of the reach of children. Store at room temperature between 15 and 30 degrees C (59 and 86 degrees F). Protect from light. Keep container tightly closed. Throw away any unused medicine after the expiration date. What should I tell my health care provider before I take this medicine? They need to know if you have any of these conditions: Bucky's syndrome diabetes glaucoma heart disease high blood pressure infection (especially a virus infection such as chickenpox, cold sores, or herpes) kidney disease liver disease mental illness myasthenia gravis osteoporosis seizures stomach or intestine problems thyroid disease an unusual or allergic reaction to lactose, prednisone, other medicines, foods, dyes, or preservatives or trying to get breast-feeding What should I watch for while using this medicine? Visit your doctor or health wound care nurse for regular checks on your progress. If you are taking this medicine over a prolonged period, carry an identification card with your name and address, the type and dose of your medicine, and your doctor's name and address. This medicine may increase your risk of getting an infection. Tell your doctor or health wound care nurse if you are around anyone with measles or chickenpox, or if you develop sores or blisters that do not heal properly. If you are going to have surgery, tell your doctor or health wound care nurse that you have taken this medicine within the last twelve months. Ask your doctor or health wound care nurse about your diet. You may need to lower the amount of salt you eat. This medicine may affect blood sugar levels. If you have diabetes, check with your doctor or health wound care nurse before you change your diet or the dose of your diabetic medicine. You have been given the following additional information: Asthma, Acute (Adult) Albuterol Sulfate Pressurized inhalation, suspension Albuterol Sulfate Nebulizer solution Prednisone Oral tablet (Electronically signed by Joe Brownlee Dr. 11/12/2016 15:54)
--- NOTE | 2016-11-12 15:54 | ED MED RECONCILIATION SUMMARY ---
Patient: JORDAN RICHARDSON Medication Reconciliation Report [facility] VisitID: [id number] [place] [address] 45y, M Registration Date/Time: 11/07/2016 Weight: 90.7 kg Height/Length: 70 in. BMI: 28.7 ALLERGIES: PCN The patient's Home Medications are listed below: CONTINUE TAKING THE FOLLOWING MEDICATIONS: Albuterol Sulfate HFA Inhalation Naproxen Oral Ventolin HFA Inhalation The source(s) of the original Home Medication information: patient The following Medications were given to the patient in the Emergency Department: Prednisone [PO] PO 60 mg, administered: 11/07/2016 1:19:00 PM The following Medications were prescribed to the patient: Albuterol HFA oral inhaler: inhale 1 puff every 6 hours as needed for wheezing, difficulty breathing or shortness of breath. Dispense one (1) unit. No refill. -- Joe Brownlee Dr. Albuterol 0.083% Inhalation Solution: inhale 1 unit dose (3 mL) via nebulizer every 6 hours as needed for wheezing, difficulty breathing or shortness of breath. Dispense fifty (50) units. No refills. -- Joe Brownlee Dr. Prednisone 50 mg: take 1 orally for 5 days. Dispense five (5). No refills. -- Joe Brownlee Dr.
== END 2016-11-07 13:50 | disposition home or self-care (01) ==
LOC: ED SRH 12:42
DX: J45.41 Moderate persistent asthma with (acute) exacerbation (principal); Z79.51 Long term (current) use of inhaled steroids